=== PATIENT | male | born 1995 | race Caucasian/White ===

== ENCOUNTER 2021-09-11 00:19 | Inpatient (IN) | payer OTHER ==
--- NOTE | 2021-09-11 00:43 | ED ---
Psych HPI - General Chief Complaint: Psychiatric Symptoms Stated Complaint: Mental Health Time Seen by Provider: 09/11/21 00:22 Source: EMS, RN notes reviewed, old records reviewed Mode of arrival: EMS Limitations: no limitations - History of Present Illness Initial Comments: This is a 25-year-old male with known history of mental illness coming in for mental health evaluation. Patient states increased difficulty in life recent heroin overdose, very stressed and distress and a syncopal 20 suicide MD Complaint: suicidal ideation, feels depressed -: hour(s) Associated Psychiatric Symptoms: depression, suicidal ideation History of same: Yes Quality: constant Improves With: none Worsens With: none Context: significant life stressor Associated Symptoms: denies other symptoms Treatments Prior to Arrival: placed on mental health hold If Self Harm: admits thoughts of self harm - Related Data Allergies Allergy/AdvReac Type Severity Reaction Status Date / Time No Known Allergies Allergy Verified 09/11/21 00:37 Review of Systems ROS Statement: Those systems with pertinent positive or pertinent negative responses have been documented in the HPI. ROS Other: All systems not noted in ROS Statement are negative. Past Medical History Past Alcohol Use History: Abuse Past Drug Use History: Marijuana General Exam Limitations: no limitations General appearance: alert, in no apparent distress Head exam: Present: atraumatic, normocephalic, normal inspection Eye exam: Present: normal appearance, PERRL, EOMI. Absent: scleral icterus, conjunctival injection, periorbital swelling ENT exam: Present: normal exam, mucous membranes moist Neck exam: Present: normal inspection. Absent: tenderness, meningismus, lymphadenopathy Respiratory exam: Present: normal lung sounds bilaterally. Absent: respiratory distress, wheezes, rales, rhonchi, stridor Cardiovascular Exam: Present: regular rate, normal rhythm, normal heart sounds. Absent: systolic murmur, diastolic murmur, rubs, gallop, clicks GI/Abdominal exam: Present: soft, normal bowel sounds. Absent: distended, tenderness, guarding, rebound, rigid Extremities exam: Present: normal inspection, full ROM, normal capillary refill. Absent: tenderness, pedal edema, joint swelling, calf tenderness Back exam: Present: normal inspection Neurological exam: Present: alert, oriented X3, CN II-XII intact Psychiatric exam: Present: normal affect, normal mood Skin exam: Present: warm, dry, intact, normal color. Absent: rash Course - Reevaluation(s) Reevaluation #1: 09/11/21 00:43 Record is reviewed Reevaluation #2: 09/11/21 00:43 Medically clear for psychiatric evaluation Medical Decision Making - Medical Decision Making 25 male seen and evaluated psychiatry patient will be admitted for psychiatric evaluation and treatment Disposition Clinical Impression: Acute anxiety, Depression, Suicidal ideation Disposition: TRANSFER TO PSYCH HOSP/UNIT Condition: Fair Is patient prescribed a controlled substance at d/c from ED?: No Referrals: None,Stated [Primary Care Provider] - 1-2 days
[2021-09-11] MEDS ORDERED: HALOPERIDOL LACTATE 5 MG/ML 1 ML VIAL IM PRN (05:26)
[2021-09-11] MEDS ORDERED: ACETAMINOPHEN TAB 325 MG TAB PO PRN (05:26)
[2021-09-11] MEDS ORDERED: LORazepam 1 MG TAB PO PRN ×2 (05:26)
[2021-09-11] MEDS ORDERED: MAG HYDROX/AL HYDROX/SIMETH 30 ML CUP PO PRN (05:26)
[2021-09-11] MEDS ORDERED: haloperidoL 5 MG TAB PO PRN (05:30)
[2021-09-11] MEDS ORDERED: LORazepam 2 MG/ML INJ IM PRN (05:31)
[2021-09-11 06:05] LABS: Amphetamine Screen,Urine Not Detected (NotDetected); Barbiturate Screen,Urine Not Detected (NotDetected); Benzodiazepines Screen,Urine Not Detected (NotDetected); Cocaine Screen,Urine Not Detected (NotDetected); Methadone Screen, Urine Not Detected (NotDetected); Opiate Screen,Urine Not Detected (NotDetected); Oxycodone Screen, Urine Not Detected (NotDetected); Phencyclidine Screen,Urine Not Detected (NotDetected); Tricyclic Antidepressant,Urine Not Detected (NotDetected); Urn Cannabinoid Scrn Detected (NotDetected)
[2021-09-11 06:11] VITALS: RESP 18
[2021-09-11 06:36] LABS: Appearance,Urine Clear (Clear); Bilirubin,Urine Negative (Negative); Blood,Urine Negative (Negative); Color,Urine Light Yellow; Glucose,Urine (UA) Negative (Negative); Ketones,Urine 1+ (Negative); Leukocyte Esterase,Urine Negative (Negative); Nitrite,Urine Negative (Negative); Protein,Urine Negative (Negative); Specific Gravity,Urine 1.009 (1.001-1.035); Urobilinogen,Urine <2.0 mg/dL (<2.0)
[2021-09-11] MEDS: MULTIVITAMINS, THERA 1 EACH TAB PO SCH (08:52)
[2021-09-11] MEDS: THIAMINE 100 MG TAB PO SCH (08:52)
[2021-09-11] MEDS: NICOTINE 14MG/24HR PATCH TRANSDERM SCH (08:52)
[2021-09-11] MEDS: FOLIC ACID 1 MG TAB PO SCH (08:52)
[2021-09-11] MEDS: LORazepam 1 MG TAB PO PRN ×2 (08:54→22:11)
[2021-09-11] MEDS ORDERED: haloperidoL 1 MG TAB PO STA (11:38)
--- NOTE | 2021-09-11 13:00 | P.HP ---
Psychiatric H&P - . H&P Date: 09/11/21 History & Physical: Allergies Allergy/AdvReac Type Severity Reaction Status Date / Time No Known Allergies Allergy Verified 09/11/21 05:34 Vital Signs Temp 98.0 F 09/11/21 06:09 Pulse 78 09/11/21 06:09 Resp 18 09/11/21 06:09 BP 135/85 09/11/21 06:09 Pulse Ox 100 09/11/21 06:09 FiO2 Intake & Output 09/10/21 09/11/21 09/11/21 18:59 06:59 18:59 Weight 62.4 kg Laboratory Last Values Urine Color Light Yellow 09/11/21 04:21 Urine Appearance Clear (Clear) 09/11/21 04:21 Urine pH 6.0 (5.0-8.0) 09/11/21 04:21 Ur Specific [place] 1.009 (1.001-1.035) 09/11/21 04:21 Urine Protein Negative (Negative) 09/11/21 04:21 Urine Glucose (UA) Negative (Negative) 09/11/21 04:21 Urine Ketones 1+ (Negative) H 09/11/21 04:21 Urine Blood Negative (Negative) 09/11/21 04:21 Urine Nitrite Negative (Negative) 09/11/21 04:21 Urine Bilirubin Negative (Negative) 09/11/21 04:21 Urine Urobilinogen <2.0 mg/dL (<2.0) 09/11/21 04:21 Ur Leukocyte Esterase Negative (Negative) 09/11/21 04:21 Urine Opiates Screen Not Detected (NotDetected) 09/11/21 04:21 Ur Oxycodone Screen Not Detected (NotDetected) 09/11/21 04:21 Urine Methadone Screen Not Detected (NotDetected) 09/11/21 04:21 Ur Propoxyphene Screen Not Detected (NotDetected) 09/11/21 04:21 Ur Barbiturates Screen Not Detected (NotDetected) 09/11/21 04:21 U Tricyclic Antidepress Not Detected (NotDetected) 09/11/21 04:21 Ur Phencyclidine Scrn Not Detected (NotDetected) 09/11/21 04:21 Ur Amphetamines Screen Not Detected (NotDetected) 09/11/21 04:21 U Methamphetamines Scrn Not Detected (NotDetected) 09/11/21 04:21 U Benzodiazepines Scrn Not Detected (NotDetected) 09/11/21 04:21 Urine Cocaine Screen Not Detected (NotDetected) 09/11/21 04:21 U Marijuana (THC) Screen Detected (NotDetected) H 09/11/21 04:21 Coronavirus (PCR) Not Detected (Not Detectd) 09/11/21 04:16 09/11/21 12:59 IDENTIFYING DATA: Patient is a single, unemployed, 25-year-old male with significant history of ADHD, alcohol use disorder, and cannabis use disorder who presents to the hospital for suicidal ideation and acute psychosis. HPI: Patient presented to the hospital on 09/11/2021, brought into the hospital by police after the patient contacted the suicide hotline endorsing suicidal ideation the context of increased psychotic symptoms. The patient has been reportedly hearing and seeing things and also endorsing bizarre paranoid delusions. The patient was petitioned and certified however signed himself voluntarily on the psychiatric unit. Upon admission on psychiatric unit, the patient does report significant symptoms of bipolar disorder including periods of excessive energy (reports 2 days of sleep over the past month), grandiosity, racing thoughts, and impulsive spending. The patient does endorse suicidal ideation however is unable to clearly state if he had any particular plan although it is noted that he had a plan to jump off the bridge. He is not reporting any depressive symptoms aside from this suicidal ideation at this time. The patient does endorse significant psychotic symptoms. He reports that it began last month. He states that he was listening to an [facility] video in order to help his anxiety but that the person's voice began to be present even when he was not watching the video. He also states he was getting messages from this person. Furthermore he does report concerns that his phone is hacked and celebrities are stalking him. The patient endorses auditory but no visual hallucinations at this time. The patient does engage in significant substance use. He reports that he has been smoking about an ounce of marijuana daily. Furthermore, he has been increasing his alcohol use in order to "calm my nerves." He states that he has been drinking up to 2-3 bottles of cheap wine per night. If he can afford it, he substitutes the wine with a bottle of vodka. PAST PSYCHIATRIC HISTORY: Patient states that he has improved since diagnosed with ADHD. He reports being previously prescribed Adderall. Patient denies any previous psychiatric hospitalizations. Patient denies any psychiatric outpatient follow-up. Patient denies any history of suicide attempts in the past. PMH: No reported medical history; Past Alcohol Use History: Abuse Past Drug Use History: Marijuana ALLERGIES: NO KNOWN DRUG ALLERGIES CHEMICAL DEPENDENCY HISTORY: The patient reports daily alcohol use over the past month, up to 2-3 bottles of wine per night. He reports daily marijuana use. He reports a history of heavy tobacco use however states that he decreased this. He denies any other drug use but does admit to experimenting with drugs in the past. FAMILY PSYCHIATRIC/SUBSTANCE USE HISTORY: No reported family history SOCIAL HISTORY: Patient is single, has no children, and is currently unemployed. He reports an 11th grade education. He currently lives with his grandparents, father, and dog. MENTAL STATUS EXAM: General Appearance: Patient appears to be stated age is alert, directable, and attempts to cooperate. Patient appears to have slightly disheveled hygiene and grooming. Behavior: Patient displayed psychomotor agitation. Eye contact is fair. Speech: Patient's speech is fluent and nonpressured. Mood/Affect: Patient reports their mood is "very stressed," affect is congruent and dysphoric. Suicidality/Homicidality: Patient endorses suicidal ideation however denies any homicidal ideation. Perceptions: Patient denies any visual hallucinations however endorses auditory hallucinations. Though content/process: The patient endorses significant paranoid delusions, ideas of reference, and some grandiose delusions Memory and concentration: AOX3, grossly intact for the purposes of this session. Can spell "WORLD" backwards Judgment and insight: Fair STRENGTHS/WEAKNESSES: Strength is that the patient seems to have fair enough insight to realize that he is experiencing a psychotic episode. Weakness is that the patient engages in heavy substance abuse. INTELLECT: average IMPRESSIONS: Acute psychosis; rule out bipolar 1 disorder, manic episode, with psychotic features versus schizoaffective disorder, bipolar type Cannabis use disorder Alcohol use disorder Tobacco use disorder PLAN: -Patient is admitted under involuntary however converted to voluntary status to MHU for stabilization of psychiatric symptoms and safety. Patient signed adult voluntary form and medication consent and is placed in patient's chart. -Medications : Will start patient on Haldol 3 mg by mouth twice a day for acute psychosis Depakote ER 750 mg by mouth at bedtime for mood stabilization -Ativan and Haldol PRN for agitation/aggression -CIWA protocol with Ativan PRN for ETOH withdrawal -Patient was counselled on substance abuse and desired to cut back on use -Patient was informed of the risks, benefits and side effects of the medication and patient verbally consented to taking the medications. Patient signed med consent form and was placed in chart. -Internal Medicine consult to perform medical evaluation and physical. -NRT - nicotine patch -SW on board for discharge planning. Encourage patient to participate in groups to work on coping skills. 09/11/21 13:00
[2021-09-11] MEDS: haloperidoL 1 MG TAB PO SCH (20:40)
[2021-09-11] MEDS ORDERED: DIVALPROEX ER 250 MG TAB.ER.24H PO SCH (21:00)
--- NOTE | 2021-09-12 00:05 | P.CONS ---
History of Present Illness - Reason for Consult Consult date: 09/11/21 - History of Present Illness The patient is a 25-year-old male with a PMH of polysubstance abuse is under the emergency room for hallucinations. The patient was admitted to the mental health unit where he was seen and evaluated. The patient reports that he has been smoking marijuana excessively, and believes that he is hearing things. He reports chronic lower back pain which is unchanged. Denies any additional physi abdias complaints. Reports smoking half a pack of cigarettes daily and using marijuana daily. Does endorse using varying amounts of liquor daily, but denied history of alcohol withdrawal or DTs. Denied experiencing chest discomfort, shortness of breath, fever, chills, cough, nausea, vomiting, abdominal pain, diarrhea. Review of systems: Pertinent positives and negatives as discussed in HPI, a complete review of systems was performed and all other systems are negative. Physical examination: General: non toxic, no distress, appears at stated age, normal weight Derm: no unusual rashes/lesions no unusual ecchymoses, warm, dry Head: atraumatic, normocephalic, symmetric Eyes: EOMI, no lid lag, anicteric sclera, pupils equal round reactive to light ENT: Nose and ears atraumatic, no thrush, no pharyngeal erythema Neck: No thyromegaly, no cervical lymphadenopathy, trachea midline, supple Mouth: no lip lesion, mucus membranes moist Cardiovascular: S1S2 reg, no murmur, positive posterior tibial pulse bilateral, no edema, capillary refill less than 2 seconds Lungs: CTA bilateral, no rhonchi, no rales , no accessory muscle use Abdominal: soft, nontender to palpation, no guarding, no appreciable organomegaly, normal bowel sounds Ext: no gross muscle atrophy, muscle strength 5 out of 5 in all 4 extremities grossly, no contractures, Neuro: CN II-XI grossly intact, light touch intact all 4 extremities, finger to nose within normal limits, Psych: Alert, oriented, appropriate affect Assessment/plan EtOH abuse -Continue with thiamine, multivitamin Marijuana and tobacco abuse -Advised on the importance of cessation Psychosis -As per psychiatry Thank you for allowing us to participate in the care of this patient. We will follow peripherally. Do not hesitate to contact us with questions. Someone can be reached from the [facility] hospitalist group at all hours of the day at [phone]. Past Medical History History of Any Multi-Drug Resistant Organisms: None Reported Smoking Status: Current every day smoker Past Alcohol Use History: Abuse Past Drug Use History: Marijuana - Past Family History Mother Family Medical History: COPD Medications and Allergies Home Medications Medication Instructions Recorded Confirmed Type No Known Home Medications 09/11/21 09/11/21 History Allergies Allergy/AdvReac Type Severity Reaction Status Date / Time No Known Allergies Allergy Verified 09/11/21 05:34 Physical Exam Vitals: Vital Signs Temp Pulse Resp BP Pulse Ox 09/11/21 06:09 98.0 F 78 18 135/85 100 Intake and Output 09/11/21 09/11/21 09/11/21 06:59 14:59 22:59 Other: Weight 62.4 kg Results Labs: Abnormal Lab Results - Last 24 Hours (Table) 09/11/21 09/11/21 Range/Units 04:21 04:21 Urine Ketones 1+ H (Negative) U Marijuana (THC) Screen Detected H (NotDetected)
[2021-09-12] MEDS: LORazepam 1 MG TAB PO PRN (04:59)
[2021-09-12] MEDS: THIAMINE 100 MG TAB PO SCH (08:24)
[2021-09-12] MEDS: NICOTINE 14MG/24HR PATCH TRANSDERM SCH (08:24)
[2021-09-12] MEDS: FOLIC ACID 1 MG TAB PO SCH (08:24)
[2021-09-12] MEDS: haloperidoL 1 MG TAB PO SCH (08:24)
[2021-09-12] MEDS: MULTIVITAMINS, THERA 1 EACH TAB PO SCH (08:24)
[2021-09-12 11:21] LABS: Basophils # (A) 0.1 k/uL (0-0.2); Basophils % (A) 1 %; Eosinophils # (A) 0.1 k/uL (0-0.7); Eosinophils % (A) 1 %; HCT 45.6 % (39.0-53.0); HGB 15.5 gm/dL (13.0-17.5); Lymphocytes # (A) 2.5 k/uL (1.0-4.8); Lymphocytes % (A) 27 %; MCH 30.7 pg (25.0-35.0); MCHC 34.1 g/dL (31.0-37.0); MCV 90.2 fL (80.0-100.0); Mean Platelet Volume 6.8; Monocytes # (A) 0.6 k/uL (0-1.0); Monocytes % (A) 6 %; Neutrophils # (A) 6.1 k/uL (1.3-7.7); Neutrophils % (A) 64 %; Platelet Count 294 k/uL (150-450); RBC 5.06 m/uL (4.30-5.90); RDW 11.8 % (11.5-15.5); WBC 9.5 k/uL (3.8-10.6)
[2021-09-12 11:55] LABS: ALT 37 U/L (4-49); AST 48 U/L (17-59); African American GFR (CKD) >90 (>60 ml/min/1.73 sqM); Albumin 5.1 g/dL (3.5-5.0); Alkaline Phosphatase 80 U/L (38-126); Anion Gap 12 mmol/L; Blood Urea Nitrogen 12 mg/dL (9-20); Calcium 9.7 mg/dL (8.4-10.2); Carbon Dioxide 27 mmol/L (22-30); Chloride 100 mmol/L (98-107); Glucose 99 mg/dL (74-99); Non-African American GFR(CKD) >90 (>60 ml/min/1.73 sqM); Potassium 3.9 mmol/L (3.5-5.1); Sodium 139 mmol/L (137-145); Total Protein 8.1 g/dL (6.3-8.2)
--- NOTE | 2021-09-12 17:58 | P.PN ---
Progress Note - Text Progress Note Date: 09/12/21 Interval History: Patient was in his room sleeping and was directable and agreeable to speak with technical document writer in the office. He reports he had not slept in a long time and is finally get some sleep here. He reports he was admitted because he was seeing things and hearing things, and also a danger to himself and others. He denies auditory hallucinations, but reports his "imagination is more active than it ever has been". He denies visual hallucinations currently. Patient has been compliant with meds, reports he feels his "legs are wobbly and having a hard time holding my weight". He reports he felt when he was looking at his phone before admission, he thought someone was sending subliminal messages to him through the phone and trying to get him to kill people. He was listening to music and started seeing violent animations, and felt someone was targeting to him, listening to him. He reports he was really scared by this and is crying. He reports he started to hear and see these things about 3 weeks ago. He reports he was smoking about 2 grams a day of marijuana. Mental Status Exam: General Appearance: Patient appears to be stated age, is disheveled, unshaven, dressed in hospital gown. Orientation: he is alert, oriented to person, place, time. Behavior: Patient is calmly seated without any agitated behavior. He is emotional, begins to cry. Speech: Patient's speech is fluent and nonpressured. Mood/Affect: Mood is "very calm, excited about future, nervous and afraid, sad about all the time I've wasted", affect is labile, tearful. Suicidality/Homicidality: Patient denies having any suicidal or homicidal ideation intent or plan. Perceptions: Patient denies any visual hallucinations and denies any auditory hallucinations. Though content: There is evidence of paranoid delusional thought content, thinks people might hurt him, kill him, or who will care about him. Thought process: Ideas of reference Memory and concentration: Grossly intact for the purposes of this session. Judgment and insight: Improving mildly Assessment: Brief psychotic disorder, r/o schizophreniform disorder vs schizoaffective disorder, bipolar type Unspecified mood disorder, r/o Bipolar 1 disorder, current episode mixed with psychotic features vs Schizoaffective disorder, bipolar type Cannabis use disorder Alcohol use disorder Tobacco use disorder Plan: -Patient continues to meet criteria for inpatient psychiatric admission for symptom stabilization and safety. Patient has signed adult voluntary form and medication consent and was placed in patient's chart. -Medications: Increase Haldol to 5 mg BID for psychosis. Start Cogentin 0.5 mg BID for EPS prophylaxis. Increase Depakote to 1000 mg QHS for mood stabilization. -When necessary Ativan and Haldol for agitation/aggression. -NRT - nicotine patch -SW on board for discharge planning. Encouraged the patient to participate in milieu. []
[2021-09-12] MEDS: BENZTROPINE MESYLATE 0.5 MG TAB PO SCH (21:42)
[2021-09-12] MEDS: haloperidoL 5 MG TAB PO SCH (21:42)
[2021-09-12] MEDS: DIVALPROEX ER 500 MG TAB.ER.24H PO SCH (21:42)
[2021-09-13] MEDS: THIAMINE 100 MG TAB PO SCH (08:53)
[2021-09-13] MEDS: haloperidoL 5 MG TAB PO SCH ×2 (08:53→21:06)
[2021-09-13] MEDS: FOLIC ACID 1 MG TAB PO SCH (08:53)
[2021-09-13] MEDS: NICOTINE 14MG/24HR PATCH TRANSDERM SCH (08:53)
[2021-09-13] MEDS: BENZTROPINE MESYLATE 0.5 MG TAB PO SCH ×2 (08:53→21:06)
[2021-09-13] MEDS: MULTIVITAMINS, THERA 1 EACH TAB PO SCH (08:53)
--- NOTE | 2021-09-13 11:24 | P.PN ---
Subjective Progress Note Date: 09/13/21 Principal diagnosis: Assessment: Brief psychotic disorder, r/o schizophreniform disorder vs schizoaffective disorder, bipolar type Unspecified mood disorder, r/o Bipolar 1 disorder, current episode mixed with psychotic features vs Schizoaffective disorder, bipolar type Cannabis use disorder Alcohol use disorder Tobacco use disorder Patient was in his room sleeping and was directable and agreeable to speak with typewriter assembler in the office. He reports he felt when he was looking at his phone before admission, he thought someone was sending subliminal messages to him through the phone and trying to get him to kill people. He was listening to music and started seeing violent animations, and felt someone was targeting to him, listening to him. He reports he was really scared by this and is crying. He reports he started to hear and see these things about 3 weeks ago. He reports he was smoking about 2 grams a day of marijuana. And drinking heavily at that time Mental Status Exam: General Appearance: Patient appears to be stated age, is disheveled, unshaven, dressed in hospital gown. Orientation: he is alert, oriented to person, place, time. Behavior: Patient is calmly seated without any agitated behavior. He is emotional, begins to cry. Speech: Patient's speech is fluent and nonpressured. Mood/Affect: Mood is calm, Suicidality/Homicidality: Patient denies having any suicidal or homicidal ideation intent or plan. Perceptions: Patient denies any visual hallucinations and denies any auditory hallucinations. Though content: There is evidence of paranoid delusional thought content, thinks people might hurt him, kill him, or who will care about him. Thought process: Ideas of reference Memory and concentration: Grossly intact for the purposes of this session. Judgment and insight: Improving mildly Assessment: Brief psychotic disorder, r/o schizophreniform disorder vs schizoaffective disorder, bipolar type Unspecified mood disorder, r/o Bipolar 1 disorder, current episode mixed with psychotic features vs Schizoaffective disorder, bipolar type Cannabis use disorder Alcohol use disorder Tobacco use disorder Plan: -Patient continues to meet criteria for inpatient psychiatric admission for symptom stabilization and safety. Patient has signed adult voluntary form and medication consent and was placed in patient's chart. -Medications: Continue Haldol to 5 mg BID for psychosis. Continue Cogentin 0.5 mg BID for EPS prophylaxis. Continue Depakote to 1000 mg QHS for mood stabilization. -When necessary Ativan and Haldol for agitation/aggression. -NRT - nicotine patch -SW on board for discharge planning. Encouraged the patient to participate in milieu. [ Maykel Michelle M.D. 09/13/2021] Objective - Vital Signs Vital signs: Vital Signs Temp 97.7 F 09/13/21 06:52 Pulse 107 H 09/13/21 06:52 Resp 18 09/11/21 06:09 BP 119/88 09/13/21 06:52 Pulse Ox 97 09/13/21 06:52 FiO2 - Labs CBC & Chem 7: 09/12/21 10:28 09/12/21 10:28 Labs: Abnormal Lab Results - Last 24 Hours (Table) 09/12/21 Range/Units 10:28 Albumin 5.1 H (3.5-5.0) g/dL
[2021-09-13] MEDS: DIVALPROEX ER 500 MG TAB.ER.24H PO SCH (21:06)
[2021-09-14 02:15] VITALS: TEMP 97.8
[2021-09-14] MEDS: LORazepam 1 MG TAB PO PRN ×2 (02:15→09:27)
[2021-09-14] MEDS: FOLIC ACID 1 MG TAB PO SCH (08:50)
[2021-09-14] MEDS: MULTIVITAMINS, THERA 1 EACH TAB PO SCH (08:50)
[2021-09-14] MEDS: haloperidoL 5 MG TAB PO SCH ×2 (08:50→21:16)
[2021-09-14] MEDS: BENZTROPINE MESYLATE 0.5 MG TAB PO SCH ×2 (08:50→21:16)
[2021-09-14] MEDS: NICOTINE 14MG/24HR PATCH TRANSDERM SCH (08:50)
[2021-09-14] MEDS: THIAMINE 100 MG TAB PO SCH (08:50)
--- NOTE | 2021-09-14 11:09 | P.PN ---
Subjective Progress Note Date: 09/14/21 Principal diagnosis: Assessment: Brief psychotic disorder, r/o schizophreniform disorder vs schizoaffective disorder, bipolar type Unspecified mood disorder, r/o Bipolar 1 disorder, current episode mixed with psychotic features vs Schizoaffective disorder, bipolar type Cannabis use disorder Alcohol use disorder Tobacco use disorder Patient was seen in the hallway and agreeable to speak with marketing writer in the office. He states that there for the most part he has been feeling a lot better He states that his thoughts are clear and is not having any hallucinations He denies any suicidal or homicidal ideations He denies any auditory or visual hallucinations Mental Status Exam: General Appearance: Patient appears to be stated age, is casually groomed and is using some board close from the hospital Orientation: he is alert, oriented to person, place, time. Behavior: Patient is calmly seated without any agitated behavior. Speech: Patient's speech is fluent and nonpressured. Mood/Affect: Mood is calm, Suicidality/Homicidality: Patient denies having any suicidal or homicidal ideation intent or plan. Perceptions: Patient denies any visual hallucinations and denies any auditory hallucinations. Though content: There is no evidence of paranoid delusional thought content, Thought process: Ideas of reference Memory and concentration: Grossly intact for the purposes of this session. Judgment and insight: Improving mildly Assessment: Brief psychotic disorder, r/o schizophreniform disorder vs schizoaffective disorder, bipolar type Unspecified mood disorder, r/o Bipolar 1 disorder, current episode mixed with psychotic features vs Schizoaffective disorder, bipolar type Cannabis use disorder Alcohol use disorder Tobacco use disorder Plan: -Patient continues to meet criteria for inpatient psychiatric admission for symptom stabilization and safety. Although he started to show some improvement and increase in insight Patient has signed adult voluntary form and medication consent and was placed in patient's chart. -Medications: Continue Haldol to 5 mg BID for psychosis. Continue Cogentin 0.5 mg BID for EPS prophylaxis. Continue Depakote to 1000 mg QHS for mood stabilization. -When necessary Ativan and Haldol for agitation/aggression. -NRT - nicotine patch -SW on board for discharge planning. Encouraged the patient to participate in milieu. [ Maykel Michelle M.D. 09/14/2021] Objective - Vital Signs Vital signs: Vital Signs Temp 97.8 F 09/14/21 02:15 Pulse 124 H 09/14/21 02:15 Resp 18 09/14/21 02:15 BP 110/79 09/14/21 02:15 Pulse Ox 99 09/14/21 02:15 FiO2 Intake & Output 09/13/21 09/14/21 09/14/21 18:59 06:59 18:59 Weight 62.2 kg - Labs CBC & Chem 7: 09/12/21 10:28 09/12/21 10:28
[2021-09-14] MEDS: MAGNESIUM HYDROXIDE 2,400 MG/10 ML CUP PO PRN ×2 (11:35→21:17)
[2021-09-14] MEDS: DIVALPROEX ER 500 MG TAB.ER.24H PO SCH (21:16)
[2021-09-15 06:44] VITALS: BP 113/70; PULSE 100
[2021-09-15] MEDS: MULTIVITAMINS, THERA 1 EACH TAB PO SCH (08:55)
[2021-09-15] MEDS: THIAMINE 100 MG TAB PO SCH (08:55)
[2021-09-15] MEDS: NICOTINE 14MG/24HR PATCH TRANSDERM SCH (08:56)
[2021-09-15] MEDS: FOLIC ACID 1 MG TAB PO SCH (08:56)
[2021-09-15] MEDS: haloperidoL 5 MG TAB PO SCH (08:56)
[2021-09-15] MEDS: BENZTROPINE MESYLATE 0.5 MG TAB PO SCH (08:56)
--- NOTE | 2021-09-15 14:10 | P.DS ---
Providers Date of admission: 09/11/21 05:16 Expected date of discharge: 09/15/21 Attending physician: Jarrett Parson MD Consults: 09/11/21 05:26 Consult Physician Routine Consulting Provider: Meme Bean Consult Reason/Comments: For H & P for Medical Follow Up Do you want consulting provider notified?: Yes Primary care physician: Stated None - Discharge Diagnosis(es) (1) Brief psychotic disorder Status: Acute Priority: High (2) Cannabis use disorder Status: Chronic Priority: Medium (3) Alcohol use disorder Status: Chronic Priority: Medium (4) Tobacco use disorder Status: Chronic Priority: Medium Hospital Course: Admission HPI: Patient is a single, unemployed, 25-year-old male with significant history of ADHD, alcohol use disorder, and cannabis use disorder who presents to the hospital for suicidal ideation and acute psychosis. Patient presented to the hospital on 09/11/2021, brought into the hospital by police after the patient contacted the suicide hotline endorsing suicidal ideation the context of increased psychotic symptoms. The patient has been reportedly hearing and seeing things and also endorsing bizarre paranoid delusions. The patient was petitioned and certified however signed himself voluntarily on the psychiatric unit. Upon admission on psychiatric unit, the patient does report significant symptoms of bipolar disorder including periods of excessive energy (reports 2 days of sleep over the past month), grandiosity, racing thoughts, and impulsive spending. The patient does endorse suicidal ideation however is unable to clearly state if he had any particular plan although it is noted that he had a plan to jump off the bridge. He is not reporting any depressive symptoms aside from this suicidal ideation at this time. The patient does endorse significant psychotic symptoms. He reports that it began last month. He states that he was listening to an [facility] video in order to help his anxiety but that the person's voice began to be present even when he was not watching the video. He also states he was getting messages from this person. Furthermore he does report concerns that his phone is hacked and celebrities are stalking him. The patient endorses auditory but no visual hallucinations at this time. The patient does engage in significant substance use. He reports that he has been smoking about an ounce of marijuana daily. Furthermore, he has been increasing his alcohol use in order to "calm my nerves." He states that he has been drinking up to 2-3 bottles of cheap wine per night. If he can afford it, he substitutes the wine with a bottle of vodka. PAST PSYCHIATRIC HISTORY: Patient states that he has improved since diagnosed with ADHD. He reports being previously prescribed Adderall. Patient denies any previous psychiatric hospitalizations. Patient denies any psychiatric outpatient follow-up. Patient denies any history of suicide attempts in the past. Hospital course: Upon admission to the unit patient was initially to significant symptoms of psychosis and billy including excessive energy, impulsivity, gross disorganization, flight of ideas, paranoid delusions, and auditory hallucinations. Patient was however directable and agreeable to commence treatment. Patient got along well with other patients on the unit and followed unit protocol. Patient was compliant with the medications and denied any side effects throughout hospital course. Patient was started on a regimen of Haldol and Depakote as the patient lacked insurance and Haldol is a more affordable antipsychotic that would address his acute symptoms. Patient spoke of his stressors and engaged in therapy both group and individual. Patient was also seen by medical team for history and physical exam. The patient's medications were gradually titrated and Cogentin was added to his regimen to address any EPS side effects. Over the course the hospitalization, the patient displayed significant improvement in regards to his target symptoms of billy and acute psychosis. He developed better insight and judgment and became more in line with reality. He reported a decrease in his suicidal thoughts anymore and strong desire to live. On the day of discharge, the patient is not reporting any suicidal or homicidal ideation, intention, and/or plan. He denies any access to firearms or other weapons. He reports no auditory or visual hallucinations. He denies any paranoia or other delusions. The patient has been adherent with his medications and is not endorsing any significant side effects at this time. His counseling on the o importance of medication adherence and outpatient follow-up. The patient does have a significant history of substance use and was counseled at great length on abstaining from all substances, especially marijuana. Prior to discharge, a family meeting will be arranged by social sciences lecturer tends any questions and ensure safety. Mental status exam: General Appearance: Patient appears to be stated age is alert, pleasant, and cooperative. Patient is in no acute distress and has fair hygiene and grooming Behavior: Patient is calmly seated without any agitated behavior. Good eye contact. Normal psychomotor activity. Speech: Patient's speech is fluent and nonpressured. Mood/Affect: Patient reports their mood is "feeling much much better.", affect is congruent and euthymic to bright. Suicidality/Homicidality: Patient denies having any suicidal or homicidal id eation intent or plan. Perceptions: Patient denies any auditory or visual hallucinations. Though content/process: There is no evidence of any delusional thought content and thought process is linear and goal-directed. Patient is future oriented. Memory and concentration: AOX3, grossly intact for the purposes of this session. Can spell "WORLD" backwards correctly. Judgment and insight: Improved with guarded prognosis Impression: Brief psychotic disorder Cannabis use disorder Alcohol use disorder Tobacco use disorder Plan: -Continue with discharge today as patient has improved and stabilized psychiatrically and is not currently an imminent threat to himself and/or others. Patient will remain at chronically elevated risk for harm to self and/or others due to his polysubstance abuse. -Continue medications: Depakote ER 1000 mg daily at bedtime for mood stabilization Cogentin 0.5 mg by mouth twice a day for EPS Haldol 5 mg by mouth twice a day for psychosis. -Patient was counseled on the need for medication compliance and appropriate follow-up at mental health and also primary care for medical issues. Patient verbalized understanding and agreed. -Social work to arrange for and conduct family meeting to ensure safety upon discharge and answer any questions/concerns. Social work also to arrange for patients follow up appointments with [facility] for psychiatric care along with follow up with primary care provider. -Patient counseled on abstaining from recreational drugs and marijuana and alcohol. Was informed/educated on the adverse effects on their physical and mental health. Patient verbally agreed and understoo. Patient was offered substance abuse treatment however declined at this time. -Patient was instructed to return to the hospital or seek immediate medical care if their psychiatric or medical symptoms do worsen or reoccur. -Psychoeducation and supportive therapy provided to patient. Risks and benefits of pharmacological treatment versus the risks and benefits of nontreatment weight and discussed. Informed consent discussion held. Common side effects of psychotropics discussed such as, but not limited to headache, GI disturbance, sexual dysfunction, movement disorders, sedation, and orthostatic hypotension. Life threatening and blackbox warnings of prescribed medications also discussed. Potential risks of operating a vehicle or heavy machinery discussed with patient at length. Advised on importance of compliance and a reliable and responsible manner. Patient advised to review FDA consumer labeling of all medications prior to taking. Patient verbalized understanding of potential risks, and agrees with current treatment plan. Patient advised to medically contact physician/emergency personnel if any acute changes in condition occur. Vital Signs Temp 97.8 F 09/15/21 06:44 Pulse 100 09/15/21 06:44 Resp 18 09/15/21 06:44 BP 113/70 09/15/21 06:44 Pulse Ox 98 09/15/21 06:44 FiO2 Intake & Output 09/14/21 09/15/21 09/15/21 18:59 06:59 18:59 Weight 62.2 kg Laboratory Results WBC 9.5 k/uL (3.8-10.6) 09/12/21 10:28 RBC 5.06 m/uL (4.30-5.90) 09/12/21 10:28 Hgb 15.5 gm/dL (13.0-17.5) 09/12/21 10:28 Hct 45.6 % (39.0-53.0) 09/12/21 10:28 MCV 90.2 fL (80.0-100.0) 09/12/21 10:28 MCH 30.7 pg (25.0-35.0) 09/12/21 10:28 MCHC 34.1 g/dL (31.0-37.0) 09/12/21 10:28 RDW 11.8 % (11.5-15.5) 09/12/21 10:28 Plt Count 294 k/uL (150-450) 09/12/21 10:28 MPV 6.8 09/12/21 10:28 Neutrophils % 64 % 09/12/21 10:28 Lymphocytes % 27 % 09/12/21 10:28 Monocytes % 6 % 09/12/21 10:28 Eosinophils % 1 % 09/12/21 10:28 Basophils % 1 % 09/12/21 10:28 Neutrophils # 6.1 k/uL (1.3-7.7) 09/12/21 10:28 Lymphocytes # 2.5 k/uL (1.0-4.8) 09/12/21 10:28 Monocytes # 0.6 k/uL (0-1.0) 09/12/21 10:28 Eosinophils # 0.1 k/uL (0-0.7) 09/12/21 10:28 Basophils # 0.1 k/uL (0-0.2) 09/12/21 10:28 Sodium 139 mmol/L (137-145) 09/12/21 10:28 Potassium 3.9 mmol/L (3.5-5.1) 09/12/21 10:28 Chloride 100 mmol/L (98-107) 09/12/21 10:28 Carbon Dioxide 27 mmol/L (22-30) 09/12/21 10:28 Anion Gap 12 mmol/L 09/12/21 10:28 BUN 12 mg/dL (9-20) 09/12/21 10:28 Creatinine 0.98 mg/dL (0.66-1.25) 09/12/21 10:28 Est GFR (CKD-EPI)AfAm >90 (>60 ml/min/1.73 sqM) 09/12/21 10:28 Est GFR (CKD-EPI)NonAf >90 (>60 ml/min/1.73 sqM) 09/12/21 10:28 Glucose 99 mg/dL (74-99) 09/12/21 10:[address] Glu mg/dL 102 09/12/21 10:28 Hemoglobin A1c 5.2 % (0.0-6.0) 09/12/21 10:28 Calcium 9.7 mg/dL (8.4-10.2) 09/12/21 10:28 Total Bilirubin 1.0 mg/dL (0.2-1.3) 09/12/21 10:28 AST 48 U/L (17-59) 09/12/21 10:28 ALT 37 U/L (4-49) 09/12/21 10:28 Alkaline Phosphatase 80 U/L (38-126) 09/12/21 10:28 Total Protein 8.1 g/dL (6.3-8.2) 09/12/21 10:28 Albumin 5.1 g/dL (3.5-5.0) H 09/12/21 10:28 TSH 1.520 mIU/L (0.465-4.680) 09/12/21 10:28 Urine Color Light Yellow 09/11/21 04:21 Urine Appearance Clear (Clear) 09/11/21 04:21 Urine pH 6.0 (5.0-8.0) 09/11/21 04:21 Ur Specific [place] 1.009 (1.001-1.035) 09/11/21 04:21 Urine Protein Negative (Negative) 09/11/21 04:21 Urine Glucose (UA) Negative (Negative) 09/11/21 04:21 Urine Ketones 1+ (Negative) H 09/11/21 04:21 Urine Blood Negative (Negative) 09/11/21 04:21 Urine Nitrite Negative (Negative) 09/11/21 04:21 Urine Bilirubin Negative (Negative) 09/11/21 04:21 Urine Urobilinogen <2.0 mg/dL (<2.0) 09/11/21 04:21 Ur Leukocyte Esterase Negative (Negative) 09/11/21 04:21 Urine Opiates Screen Not Detected (NotDetected) 09/11/21 04:21 Ur Oxycodone Screen Not Detected (NotDetected) 09/11/21 04:21 Urine Methadone Screen Not Detected (NotDetected) 09/11/21 04:21 Ur Propoxyphene Screen Not Detected (NotDetected) 09/11/21 04:21 Ur Barbiturates Screen Not Detected (NotDetected) 09/11/21 04:21 U Tricyclic Antidepress Not Detected (NotDetected) 09/11/21 04:21 Ur Phencyclidine Scrn Not Detected (NotDetected) 09/11/21 04:21 Ur Amphetamines Screen Not Detected (NotDetected) 09/11/21 04:21 U Methamphetamines Scrn Not Detected (NotDetected) 09/11/21 04:21 U Benzodiazepines Scrn Not Detected (NotDetected) 09/11/21 04:21 Urine Cocaine Screen Not Detected (NotDetected) 09/11/21 04:21 U Marijuana (THC) Screen Detected (NotDetected) H 09/11/21 04:21 Coronavirus (PCR) Not Detected (Not Detectd) 09/11/21 04:16 Allergies Allergy/AdvReac Type Severity Reaction Status Date / Time No Known Allergies Allergy Verified 09/11/21 05:34 Patient Condition at Discharge: Stable Plan - Discharge Summary New Discharge Prescriptions: New Divalproex ER [Depakote ER] 1,000 mg PO HS 30 Days tab Benztropine Mesylate [Cogentin] 0.5 mg PO BID 30 Days tab haloperidoL [Haldol] 5 mg PO BID 30 Days tab Discharge Medication List Benztropine Mesylate [Cogentin] 0.5 mg PO BID 30 Days tab 09/15/21 [Rx] Divalproex ER [Depakote ER] 1,000 mg PO HS 30 Days tab 09/15/21 [Rx] haloperidoL [Haldol] 5 mg PO BID 30 Days tab 09/15/21 [Rx] Follow up Appointment(s)/Referral(s): [facility] [Outside] - 09/17/21 9:00 am (with intake department) [facility] [NON[facility]STAFF] - 1 Week Patient Instructions/Handouts: Schizoaffective Disorder (DC) Activity/Diet/Wound Care/Special Instructions: Avoid the use of street drugs and alcohol. Take all prescriptions as prescribed. When you are in need of refills on your medications, please contact your medical provider and/or outpatient psychiatrist to have this done. Please go to scheduled outpatient appointment for aftercare treatment. If symptoms return or become worse, call the crisis line at and/or go to the nearest emergency room for evaluation. Discharge Disposition: HOME SELF-CARE
== END 2021-09-15 12:45 | disposition home or self-care (01) | DRG 885 ==
LOC: EC 00:19 → 3MHU 05:16
PROVIDERS: ADMIT Psychiatry & Neurology Psychiatry; ATTEND Psychiatry & Neurology Psychiatry
DX: F23 Brief psychotic disorder (principal); R45.851 Suicidal ideations; F10.10 Alcohol abuse, uncomplicated; F12.10 Cannabis abuse, uncomplicated; F17.210 Nicotine dependence, cigarettes, uncomplicated; F32.A Depression, unspecified; F41.9 Anxiety disorder, unspecified; F90.9 Attention-deficit hyperactivity disorder, unspecified type; G89.29 Other chronic pain; Z79.899 Other long term (current) drug therapy; Z82.5 Family history of asthma and other chronic lower respiratory diseases; Z28.21 Immunization not carried out because of patient refusal; Z71.41 Alcohol abuse counseling and surveillance of alcoholic; Z71.51 Drug abuse counseling and surveillance of drug abuser; Z20.822 Contact with and (suspected) exposure to COVID-19
CPT/HCPCS: 80053; 80306; 81003; 82075; 83036; 84443; 85025; 87635; 99285

== ENCOUNTER 2021-09-27 12:08 | Emergency (ER) | payer OTHER ==
[2021-09-27] MEDS ORDERED: SODIUM CHLORIDE 0.9% 1,000 ML IV ONE (12:27)
[2021-09-27 12:55] LABS: Basophils # (A) 0.1 k/uL (0-0.2); Basophils % (A) 1 %; Eosinophils # (A) 0.3 k/uL (0-0.7); Eosinophils % (A) 4 %; HCT 43.9 % (39.0-53.0); HGB 14.5 gm/dL (13.0-17.5); Lymphocytes # (A) 1.7 k/uL (1.0-4.8); Lymphocytes % (A) 24 %; MCH 30.1 pg (25.0-35.0); MCHC 33.1 g/dL (31.0-37.0); MCV 91.2 fL (80.0-100.0); Mean Platelet Volume 7.5; Monocytes # (A) 0.5 k/uL (0-1.0); Monocytes % (A) 7 %; Neutrophils # (A) 4.6 k/uL (1.3-7.7); Neutrophils % (A) 63 %; Platelet Count 212 k/uL (150-450); RBC 4.82 m/uL (4.30-5.90); RDW 11.9 % (11.5-15.5); WBC 7.2 k/uL (3.8-10.6)
[2021-09-27 13:09] LABS: Amorphous Sediment,Urine Rare /hpf; Appearance,Urine Cloudy (Clear); Bilirubin,Urine Negative (Negative); Blood,Urine Negative (Negative); Color,Urine Light Yellow; Glucose,Urine (UA) Negative (Negative); Ketones,Urine Negative (Negative); Leukocyte Esterase,Urine Negative (Negative); Nitrite,Urine Negative (Negative); Protein,Urine Negative (Negative); RBC,Urine 1 /hpf (0-5); Urobilinogen,Urine <2.0 mg/dL (<2.0); WBC,Urine 1 /hpf (0-5)
[2021-09-27 13:13] LABS: ALT 35 U/L (4-49); AST 40 U/L (17-59); African American GFR (CKD) >90 (>60 ml/min/1.73 sqM); Albumin 4.5 g/dL (3.5-5.0); Alcohol <10 mg/dL; Alkaline Phosphatase 63 U/L (38-126); Anion Gap 8 mmol/L; Blood Urea Nitrogen 18 mg/dL (9-20); Calcium 9.6 mg/dL (8.4-10.2); Carbon Dioxide 25 mmol/L (22-30); Chloride 107 mmol/L (98-107); Glucose 94 mg/dL (74-99); Magnesium 1.9 mg/dL (1.6-2.3); Non-African American GFR(CKD) >90 (>60 ml/min/1.73 sqM); Potassium 4.2 mmol/L (3.5-5.1); Sodium 140 mmol/L (137-145); Total Bilirubin 0.5 mg/dL (0.2-1.3); Total Protein 7.1 g/dL (6.3-8.2)
[2021-09-27 13:30] LABS: Amphetamine Screen,Urine Not Detected (NotDetected); Barbiturate Screen,Urine Not Detected (NotDetected); Benzodiazepines Screen,Urine Not Detected (NotDetected); Cocaine Screen,Urine Not Detected (NotDetected); Methadone Screen, Urine Not Detected (NotDetected); Opiate Screen,Urine Not Detected (NotDetected); Oxycodone Screen, Urine Not Detected (NotDetected); Phencyclidine Screen,Urine Not Detected (NotDetected); Tricyclic Antidepressant,Urine Not Detected (NotDetected); Urn Cannabinoid Scrn Detected (NotDetected)
--- NOTE | 2021-09-27 13:46 | ED ---
Weakness HPI - General Chief complaint: Weakness Stated complaint: weakness Time Seen by Provider: 09/27/21 12:15 Source: patient, family, RN notes reviewed Mode of arrival: ambulatory Limitations: no limitations - History of Present Illness Initial comments: 25-year-old male presents emergency Department chief complaint of generalized fatigue and weakness. Patient states that he's been withdrawing from alcohol and marijuana. Patient states he was admitted for psychiatric treatment started psychiatric medications. He states he just felt tired, this feels weak and not eating and drinking well. Patient denies any recent vomiting no shaking episod es of seizures. Patient states has not had a drink in almost few weeks. Patient denies any other drug use patient offers no complaints. - Related Data Previous Rx's Medication Instructions Recorded Benztropine Mesylate [Cogentin] 0.5 mg PO BID 30 Days tab 09/15/21 Divalproex ER [Depakote ER] 1,000 mg PO HS 30 Days tab 09/15/21 haloperidoL [Haldol] 5 mg PO BID 30 Days tab 09/15/21 Allergies Allergy/AdvReac Type Severity Reaction Status Date / Time No Known Allergies Allergy Verified 09/27/21 12:15 Review of Systems ROS Statement: Those systems with pertinent positive or pertinent negative responses have been documented in the HPI. ROS Other: All systems not noted in ROS Statement are negative. Past Medical History Past Medical History: No Reported History History of Any Multi-Drug Resistant Organisms: None Reported Past Surgical History: No Surgical Hx Reported Past Psychological History: Anxiety, Bipolar, Schizophrenia Smoking Status: Current every day smoker Past Alcohol Use History: Abuse Past Drug Use History: Marijuana - Past Family History Mother Family Medical History: COPD General Exam Limitations: no limitations General appearance: alert, in no apparent distress Head exam: Present: atraumatic, normocephalic, normal inspection Eye exam: Present: normal appearance, PERRL, EOMI. Absent: scleral icterus, conjunctival injection, periorbital swelling ENT exam: Present: normal exam, normal oropharynx, mucous membranes moist Neck exam: Present: normal inspection. Absent: tenderness, meningismus, ly mphadenopathy Respiratory exam: Present: normal lung sounds bilaterally. Absent: respiratory distress, wheezes, rales, rhonchi, stridor Cardiovascular Exam: Present: regular rate, normal rhythm, normal heart sounds. Absent: systolic murmur, diastolic murmur, rubs, gallop, clicks GI/Abdominal exam: Present: soft, normal bowel sounds. Absent: distended, tenderness, guarding, rebound, rigid Neurological exam: Present: alert, oriented X3, CN II-XII intact Skin exam: Present: warm, dry, intact, normal color. Absent: rash Course Vital Signs 09/27/21 12:11 Temperature 98.2 F Pulse Rate 79 Respiratory 18 Rate Blood Pressure 129/83 O2 Sat by Pulse 98 Oximetry Medical Decision Making - Medical Decision Making Patient's laboratory unremarkable, urinalysis unremarkable patient is positive for marijuana. Patient states is not using currently. He does feel better after fluids and eating food. Patient be discharged supination return parameters discussed. - Lab Data Result diagrams: 09/27/21 12:49 09/27/21 12:49 Lab Results 09/27/21 09/27/21 09/27/21 Range/Units 12:25 12:49 12:49 WBC 7.2 (3.8-10.6) k/uL RBC 4.82 (4.30-5.90) m/uL Hgb 14.5 (13.0-17.5) gm/dL Hct 43.9 (39.0-53.0) % MCV 91.2 (80.0-100.0) fL MCH 30.1 (25.0-35.0) pg MCHC 33.1 (31.0-37.0) g/dL RDW 11.9 (11.5-15.5) % Plt Count 212 (150-450) k/uL MPV 7.5 Neutrophils % 63 % Lymphocytes % 24 % Monocytes % 7 % Eosinophils % 4 % Basophils % 1 % Neutrophils # 4.6 (1.3-7.7) k/uL Lymphocytes # 1.7 (1.0-4.8) k/uL Monocytes # 0.5 (0-1.0) k/uL Eosinophils # 0.3 (0-0.7) k/uL Basophils # 0.1 (0-0.2) k/uL Sodium 140 (137-145) mmol/L Potassium 4.2 (3.5-5.1) mmol/L Chloride 107 (98-107) mmol/L Carbon Dioxide 25 (22-30) mmol/L Anion Gap 8 mmol/L BUN 18 (9-20) mg/dL Creatinine 0.78 (0.66-1.25) mg/dL Est GFR (CKD-EPI)AfAm >90 (>60 ml/min/1.73 sqM) Est GFR (CKD-EPI)NonAf >90 (>60 ml/min/1.73 sqM) Glucose 94 (74-99) mg/dL Calcium 9.6 (8.4-10.2) mg/dL Magnesium 1.9 (1.6-2.3) mg/dL Total Bilirubin 0.5 (0.2-1.3) mg/dL AST 40 (17-59) U/L ALT 35 (4-49) U/L Alkaline Phosphatase 63 (38-126) U/L Total Protein 7.1 (6.3-8.2) g/dL Albumin 4.5 (3.5-5.0) g/dL Urine Color Light Yellow Urine Appearance Cloudy (Clear) Urine pH 8.0 (5.0-8.0) Ur Specific [place] 1.010 (1.001-1.035) Urine Protein Negative (Negative) Urine Glucose (UA) Negative (Negative) Urine Ketones Negative (Negative) Urine Blood Negative (Negative) Urine Nitrite Negative (Negative) Urine Bilirubin Negative (Negative) Urine Urobilinogen <2.0 (<2.0) mg/dL Ur Leukocyte Esterase Negative (Negative) Urine RBC 1 (0-5) /hpf Urine WBC 1 (0-5) /hpf Amorphous Sediment Rare H (None) /hpf Urine Opiates Screen Not Detected (NotDetected) Ur Oxycodone Screen Not Detected (NotDetected) Urine Methadone Screen Not Detected (NotDetected) Ur Propoxyphene Screen Not Detected (NotDetected) Ur Barbiturates Screen Not Detected (NotDetected) U Tricyclic Antidepress Not Detected (NotDetected) Ur Phencyclidine Scrn Not Detected (NotDetected) Ur Amphetamines Screen Not Detected (NotDetected) U Methamphetamines Scrn Not Detected (NotDetected) U Benzodiazepines Scrn Not Detected (NotDetected) Urine Cocaine Screen Not Detected (NotDetected) U Marijuana (THC) Screen Detected H (NotDetected) Serum Alcohol <10 mg/dL Disposition Clinical Impression: Fatigue, Weakness Disposition: HOME SELF-CARE Condition: Stable Instructions (If sedation given, give patient instructions): Fatigue (ED) Additional Instructions: Please return to the Emergency Department if symptoms worsen or any other concerns. Is patient prescribed a controlled substance at d/c from ED?: No Referrals: Hossein Becerra MD [Primary Care Provider] - 1-2 days Time of Disposition: 13:46
[2021-09-27 13:57] VITALS: BP 135/82; PULSE 80; RESP 16; TEMP 98
== END 2021-09-27 13:56 | disposition home or self-care (01) ==
LOC: EC 12:08
DX: R53.1 Weakness (principal); R53.83 Other fatigue; F17.200 Nicotine dependence, unspecified, uncomplicated
CPT/HCPCS: 36415; 80053; 83735; 85025; 81001; 80306; 99284; 96360; G0480; 80320

== ENCOUNTER 2024-05-15 09:25 | Inpatient (IN) | payer MEDICAID, OTHER ==
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
[2024-05-15 10:03] LABS: Appearance,Urine Clear (Clear); Bilirubin,Urine Negative (Negative); Blood,Urine Negative (Negative); Color,Urine Colorless; Glucose,Urine (UA) Negative (Negative); Ketones,Urine Negative (Negative); Leukocyte Esterase,Urine Negative (Negative); Nitrite,Urine Negative (Negative); Protein,Urine Negative (Negative); Specific Gravity,Urine 1.005 (1.001-1.035); Urobilinogen,Urine <2.0 mg/dL (<2.0)
[2024-05-15 10:15] LABS: Amphetamine Screen,Urine Not Detected (NotDetected); Barbiturate Screen,Urine Not Detected (NotDetected); Benzodiazepines Screen,Urine Not Detected (NotDetected); Cocaine Screen,Urine Not Detected (NotDetected); Methadone Screen, Urine Not Detected (NotDetected); Opiate Screen,Urine Not Detected (NotDetected); Oxycodone Screen, Urine Not Detected (NotDetected); Phencyclidine Screen,Urine Not Detected (NotDetected); Tricyclic Antidepressant,Urine Not Detected (NotDetected); Urn Cannabinoid Scrn Detected (NotDetected)
[2024-05-15 10:39] LABS: Influenza A Not Detected (Not Detectd); Influenza B Not Detected (Not Detectd); RSV Not Detected (Not Detectd)
[2024-05-15] MEDS ORDERED: MAG HYDROX/AL HYDROX/SIMETH 355 ML BOTTLE PO PRN (13:07)
[2024-05-15] MEDS ORDERED: IBUPROFEN 600 MG TAB PO PRN (13:07)
[2024-05-15] MEDS ORDERED: LORazepam 2 MG/ML INJ IM PRN (13:07)
[2024-05-15] MEDS ORDERED: ACETAMINOPHEN TAB 325 MG TAB PO PRN (13:07)
[2024-05-15] MEDS ORDERED: haloperidoL 5 MG TAB PO PRN (13:07)
[2024-05-15] MEDS ORDERED: LORazepam 1 MG TAB PO PRN (13:07)
[2024-05-15] MEDS ORDERED: HALOPERIDOL LACTATE 5 MG/ML 1 ML VIAL IM PRN (13:07)
[2024-05-15] MEDS ORDERED: QUEtiapine 100 MG TAB PO PRN (13:11)
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
[2024-05-16 08:11] LABS: Basophils # (A) 0.1 k/uL (0-0.2); Basophils % (A) 1 %; Eosinophils # (A) 0.4 k/uL (0-0.7); Eosinophils % (A) 5 %; HCT 47.6 % (39.0-53.0); HGB 15.3 gm/dL (13.0-17.5); Lymphocytes % (A) 37 %; MCHC 32.1 g/dL (31.0-37.0); MCV 90.4 fL (80.0-100.0); Mean Platelet Volume 6.7; Monocytes # (A) 0.4 k/uL (0-1.0); Monocytes % (A) 5 %; Neutrophils # (A) 4.1 k/uL (1.3-7.7); Neutrophils % (A) 51 %; Platelet Count 372 k/uL (150-450); RBC 5.26 m/uL (4.30-5.90); RDW 12.1 % (11.5-15.5)
[2024-05-16] MEDS: NICOTINE 14MG/24HR PATCH TRANSDERM SCH (08:12)
[2024-05-16 08:25] LABS: ALT 15 U/L (4-49); AST 22 U/L (17-59); African American GFR (CKD) >90 (>60 ml/min/1.73 sqM); Albumin 4.8 g/dL (3.5-5.0); Alkaline Phosphatase 67 U/L (38-126); Anion Gap 11 mmol/L; Blood Urea Nitrogen 8 mg/dL (9-20); Calcium 9.9 mg/dL (8.4-10.2); Carbon Dioxide 25 mmol/L (22-30); Chloride 102 mmol/L (98-107); Glucose 95 mg/dL (74-99); Non-African American GFR(CKD) >90 (>60 ml/min/1.73 sqM); Potassium 4.3 mmol/L (3.5-5.1); Sodium 138 mmol/L (137-145); Total Bilirubin 1.5 mg/dL (0.2-1.3); Total Protein 7.5 g/dL (6.3-8.2)
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
[2024-05-16 15:04] LABS: Chol/HDL Ratio 2.54 Ratio; LDL Cholesterol,Calculated 63.2 mg/dL (0.0-131.0); VLDL Calculation 17.42 mg/dL (5.00-40.00)
[2024-05-16 15:28] VITALS: BMI 19.0
[2024-05-16] MEDS: QUEtiapine 50 MG TAB PO SCH (20:47)
--- NOTE | 2024-05-17 13:20 | P.PN ---
Progress Note - Text Progress Note Date: 05/17/24 Interval History: [facility] [place] and was directable and agreeable to speak with radio news writer in the office. Patient has been active in groups, trying to stay optimistic. He has not been able to get in contact with his grandmother or father and patient signed an LAINE today for radio news writer to contact them however they did not meat pickler but voicemail was left. Patient does not feel as though he will be able to return home as this is atypical for them. Patient expressed concerns with [facility] given the recent ones being full and he states not having any other support network where he can stay. Given the patient's recent heavy alcohol use daily that is contributing to his ultimate psychosis, patient was agreeable with exploring rehab to try to help cope with with this to ultimately help not only his mental health but his physical health as well. Patient otherwise denied any paranoia today, stating his appetite has increased and that he is sleeping well. Patient was able to reflect on his previous delusional thoughts stating previously he felt as though he was God however he is not able to realize that the substances were contributing to this thought. At this time patient denies any suicidal or homicidal ideations, intent or plan. Patient denies any auditory, visual hallucinations and denies any paranoia or delusions. Patient denies any side effects from the medications and has been compliant with meds. Mental Status Exam: General Appearance: Patient appears to be stated age is alert, directable, and cooperative. He is dressed in hospital gown with poor grooming Behavior: Patient is calmly seated without any agitated behavior. Speech: Patient's speech is fluent and nonpressured. Mood/Affect: Mood is improving mildly, affect is congruent and blunted. Suicidality/Homicidality: Patient denies having any suicidal or homicidal ideation intent or plan. Perceptions: Patient denies any visual hallucinations and denies any auditory hallucinations Though content/process: There is no evidence of any delusional thought content and thought process is linear and goal-directed. Memory and concentration: AOX3, grossly intact for the purposes of this session Judgment and insight: Improving mildly Assessment Psychosis, unspecified Rule out substance-induced psychotic disorder Generalized anxiety disorder Alcohol use disorder Cannabis use disorder Nicotine dependence Plan: -Patient continues to meet criteria for inpatient psychiatric admission for symptom stabilization and safety. Patient has not signed adult voluntary form and medication consent and was placed in patient's chart. -Medications: Continue [place] 50 mg at bedtime for psychosis/mood stabilization -When necessary Ativan and Haldol for agitation/aggression. -Labs: Reviewed -NRT -nicotine patch -SW on board for discharge planning. Encouraged the patient to participate in milieu. Currently awaiting deferral with workers compensation attorney and court date.
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
[2024-05-18 22:25] VITALS: RESP 12
[2024-05-19 09:14] VITALS: BP 133/93; PULSE 106; TEMP 97.4
[2024-05-19] MEDS: MAGNESIUM HYDROXIDE 2,400 MG/30 ML CUP PO PRN (09:15)
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
== END 2024-05-19 14:32 | disposition home or self-care (01) | DRG 775 ==
LOC: EC 09:25 → 3MHU 13:04
PROVIDERS: ADMIT Psychiatry & Neurology Psychiatry; ATTEND Psychiatry & Neurology Psychiatry
DX: F12.150 Cannabis abuse with psychotic disorder with delusions (principal); R45.851 Suicidal ideations; F41.1 Generalized anxiety disorder; F31.9 Bipolar disorder, unspecified; F20.9 Schizophrenia, unspecified; F17.210 Nicotine dependence, cigarettes, uncomplicated; F10.10 Alcohol abuse, uncomplicated; U07.0 Vaping-related disorder; Z11.52 Encounter for screening for COVID-19; Z91.52 Personal history of nonsuicidal self-harm; Z79.899 Other long term (current) drug therapy; Z56.0 Unemployment, unspecified; Z55.5 Less than a high school diploma
CPT/HCPCS: 80053; 80061; 80306; 81003; 82075; 83036; 84443; 85025; 87636; 99285

== ENCOUNTER 2024-09-24 12:55 | Inpatient (IN) | payer MEDICAID, OTHER ==
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
[2024-09-24 14:43] LABS: Barbiturate Screen,Urine Not Detected (NotDetected); Benzodiazepines Screen,Urine Not Detected (NotDetected); Opiate Screen,Urine Not Detected (NotDetected); Oxycodone Screen, Urine Not Detected (NotDetected); Phencyclidine Screen,Urine Not Detected (NotDetected); Tricyclic Antidepressant,Urine Not Detected (NotDetected); Urn Cannabinoid Scrn Detected (NotDetected)
[2024-09-24 17:29] LABS: RSV Not Detected (Not Detectd)
[2024-09-24] MEDS ORDERED: ACETAMINOPHEN TAB 325 MG TAB PO PRN (19:42)
[2024-09-24] MEDS ORDERED: MAG HYDROX/AL HYDROX/SIMETH 355 ML BOTTLE PO PRN (19:42)
[2024-09-24] MEDS ORDERED: IBUPROFEN 600 MG TAB PO PRN (19:42)
[2024-09-24] MEDS ORDERED: MAGNESIUM HYDROXIDE 2,400 MG/30 ML CUP PO PRN (19:42)
[2024-09-24] MEDS ORDERED: LORazepam 1 MG TAB PO PRN (19:42)
[2024-09-24] MEDS ORDERED: HALOPERIDOL LACTATE 5 MG/ML 1 ML VIAL IM PRN (19:42)
[2024-09-24] MEDS: NICOTINE 14MG/24HR PATCH TRANSDERM SCH (20:59)
--- NOTE | 2024-09-25 06:36 | P.MDCNMH ---
History of Present Illness H&P Date: 09/25/24 28 year old male with no significant past medical history Patient coming in for mental health evaluation Medicine was consulted for medical management Patient denies any fevers chills nausea vomiting abdominal pain chest pain trouble breathing denies any dizziness lightheadedness denies any urinary changes or bowel habit changes denies any focal neurodeficits Review of systems All systems reviewed with pertinent positive negatives as per HPI on exam Constitutional: No acute distress, conversant, pleasant Eyes: Anicteric sclerae, moist conjunctiva, Pupils equal round reactive to light Neck: Supple, no masses, or JVD No carotid bruits No thyromegaly Lungs: Clear to auscultation Clear to percussion Normal respiratory effort, no accessory muscle use Cardiovascular: Heart regular in rate and rhythm, No murmurs, gallops, or rubs No peripheral edema Abdominal: Soft Nontender, no guarding, rebound or rigidity Abdomen moving with respiration Extremities: No digital cyanosis No clubbing Pedal pulses intact and symmetrical Radial pulses intact and symmetrical No calf tenderness Psychiatric: Alert and oriented to person, place and time Neuro Muscles Strength 5/5 in all 4 extremities Sensation to light touch grossly present throughout Cranial nerves II-XII grossly intact Past Medical History Past Medical History: No Reported History History of Any Multi-Drug Resistant Organisms: None Reported Past Surgical History: No Surgical Hx Reported Past Anesthesia/Blood Transfusion Reactions: No Reported Reaction Past Psychological History: Anxiety, Bipolar, Schizophrenia Smoking Status: Current every day smoker, Vaper Past Alcohol Use History: Heavy Past Drug Use History: Marijuana - Past Family History Mother Family Medical History: COPD Medications and Allergies Home Medications Medication Instructions Recorded Confirmed Type No Known Home Medications 09/24/24 09/24/24 History Allergies Allergy/AdvReac Type Severity Reaction Status Date / Time No Known Allergies Allergy Verified 09/24/24 16:57 Physical Exam Vitals: Vital Signs Temp Pulse Pulse Resp BP BP Pulse Ox 09/24/24 21:00 97.4 F L 91 18 149/88 99 09/24/24 20:45 97.8 F 89 18 155/90 100 09/24/24 19:47 97.9 F 65 18 128/94 99 09/24/24 13:09 97.8 F 84 16 123/82 99 Intake and Output 09/24/24 09/24/24 09/25/24 14:59 22:59 06:59 Other: Weight 70.307 kg 67.642 kg Cranial Nerve Examination - Cranial Nerves Cranial Nerve II- Optic: Intact Cranial Nerve III- Oculomotor: Intact Cranial Nerve IV- Trochlear: Intact Cranial Nerve V- Trigeminal: Intact Cranial Nerve - Abducens: Intact Cranial Nerve VII- Facial: Intact Cranial Nerve VIII- Auditory: Intact Cranial Nerve IX- Glossopharyngeal: Intact Cranial Nerve X- Vagus: Intact Cranial Nerve XI- Accessory: Intact Cranial Nerve XII- Hypoglossal: Intact Results Labs: Abnormal Lab Results - Last 24 Hours (Table) 09/24/24 Range/Units 13:59 U Marijuana (THC) Screen Detected H (NotDetected) Assessment and Plan Assessment: polysubstance abuse tobacco smoking counseled to quit smoking nicotine replacement therapy offered urine drug screen positive for marijuana acute respiratory viral panel negative no other blood work available for review at this time thank you for this consultation
[2024-09-25 07:30] LABS: Basophils # (A) 0.07 10*3/uL (0.00-0.10); Basophils % (A) 0.8 %; Eosinophils # (A) 0.33 10*3/uL (0.04-0.35); Eosinophils % (A) 3.7 %; HCT 44.0 % (39.6-50.0); HGB 15.4 g/dL (13.0-17.0); Lymphocytes # (A) 3.28 10*3/uL (0.90-5.00); Lymphocytes % (A) 36.6 %; MCH 29.6 pg (27.0-32.0); MCHC 35.0 g/dL (32.0-37.0); MCV 84.6 fL (80.0-97.0); Monocytes # (A) 0.50 10*3/uL (0.20-1.00); Monocytes % (A) 5.6 %; Neutrophils # (A) 4.78 10*3/uL (1.80-7.70); Neutrophils % (A) 53.2 %; Platelet Count 354 10*3/uL (140-440); RBC 5.20 10*6/uL (4.40-5.60); RDW 11.7 % (11.5-14.5); WBC 8.97 10*3/uL (4.50-10.00)
[2024-09-25 07:56] LABS: ALT 21 U/L (4-49); AST 30 U/L (17-59); African American GFR (CKD) >90 (>60 ml/min/1.73 sqM); Albumin 5.2 g/dL (3.5-5.0); Alkaline Phosphatase 86 U/L (38-126); Anion Gap 16 mmol/L; Blood Urea Nitrogen 12 mg/dL (9-20); Calcium 10.3 mg/dL (8.4-10.2); Carbon Dioxide 18 mmol/L (22-30); Chloride 110 mmol/L (98-107); Glucose 97 mg/dL (74-99); Non-African American GFR(CKD) >90 (>60 ml/min/1.73 sqM); Potassium 3.9 mmol/L (3.5-5.1); Sodium 144 mmol/L (137-145); Total Protein 8.1 g/dL (6.3-8.2)
[2024-09-25] MEDS ORDERED: NICOTINE 14MG/24HR PATCH TRANSDERM SCH (09:00)
[2024-09-25 10:57] LABS: Cholesterol 162.00 mg/dL (0.00-200.00); HDL Cholesterol 62.70 mg/dL (40.00-60.00); LDL Cholesterol,Calculated 86.6 mg/dL (0.0-131.0); Triglycerides 63.40 mg/dL (0.00-149.00); VLDL Calculation 12.68 mg/dL (5.00-40.00)
--- NOTE | 2024-09-25 13:54 | P.HP ---
Psychiatric H&P - . H&P Date: 09/25/24 History & Physical: Allergies Allergy/AdvReac Type Severity Reaction Status Date / Time No Known Allergies Allergy Verified 09/24/24 16:57 Vital Signs Temp 97.1 F L 09/25/24 09:00 Pulse 106 H 09/25/24 09:00 Resp 16 09/25/24 09:00 BP 114/73 09/25/24 09:00 Pulse Ox 99 09/25/24 09:00 FiO2 Intake & Output 09/24/24 09/25/24 09/25/24 18:59 06:59 18:59 Weight 70.307 kg 67.642 kg Laboratory Last Values WBC 8.97 10*3/uL (4.50-10.00) 09/25/24 07:03 RBC 5.20 10*6/uL (4.40-5.60) 09/25/24 07:03 Hgb 15.4 g/dL (13.0-17.0) 09/25/24 07:03 Hct 44.0 % (39.6-50.0) 09/25/24 07:03 MCV 84.6 fL (80.0-97.0) 09/25/24 07:03 MCH 29.6 pg (27.0-32.0) 09/25/24 07:03 MCHC 35.0 g/dL (32.0-37.0) 09/25/24 07:03 Plt Count 354 10*3/uL (140-440) 09/25/24 07:03 MPV 9.0 fL (9.5-12.2) L 09/25/24 07:03 Immature Gran % (Auto) 0.1 % 09/25/24 07:03 Neutrophils % 53.2 % 09/25/24 07:03 Lymphocytes % 36.6 % 09/25/24 07:03 Monocytes % 5.6 % 09/25/24 07:03 Eosinophils % 3.7 % 09/25/24 07:03 Basophils % 0.8 % 09/25/24 07:03 Immature Gran # 0.01 10*3/uL (0.00-0.04) 09/25/24 07:03 Neutrophils # 4.78 10*3/uL (1.80-7.70) 09/25/24 07:03 Lymphocytes # 3.28 10*3/uL (0.90-5.00) 09/25/24 07:03 Monocytes # 0.50 10*3/uL (0.20-1.00) 09/25/24 07:03 Eosinophils # 0.33 10*3/uL (0.04-0.35) 09/25/24 07:03 Basophils # 0.07 10*3/uL (0.00-0.10) 09/25/24 07:03 Sodium 144 mmol/L (137-145) 09/25/24 07:03 Potassium 3.9 mmol/L (3.5-5.1) 09/25/24 07:03 Chloride 110 mmol/L (98-107) H 09/25/24 07:03 Carbon Dioxide 18 mmol/L (22-30) L 09/25/24 07:03 Anion Gap 16 mmol/L 09/25/24 07:03 BUN 12 mg/dL (9-20) 09/25/24 07:03 Creatinine 0.96 mg/dL (0.66-1.25) 09/25/24 07:03 Est GFR (CKD-EPI)AfAm >90 (>60 ml/min/1.73 sqM) 09/25/24 07:03 Est GFR (CKD-EPI)NonAf >90 (>60 ml/min/1.73 sqM) 09/25/24 07:03 Glucose 97 mg/dL (74-99) 09/25/24 07:[address] Glu mg/dL 97 mg/dL 09/25/24 07:03 Hemoglobin A1c 5.0 % (<=6.0) 09/25/24 07:03 Calcium 10.3 mg/dL (8.4-10.2) H 09/25/24 07:03 Total Bilirubin 1.5 mg/dL (0.2-1.3) H 09/25/24 07:03 AST 30 U/L (17-59) 09/25/24 07:03 ALT 21 U/L (4-49) 09/25/24 07:03 Alkaline Phosphatase 86 U/L (38-126) 09/25/24 07:03 Total Protein 8.1 g/dL (6.3-8.2) 09/25/24 07:03 Albumin 5.2 g/dL (3.5-5.0) H 09/25/24 07:03 Triglycerides 63.40 mg/dL (0.00-149.00) 09/25/24 07:03 Cholesterol 162.00 mg/dL (0.00-200.00) 09/25/24 07:03 LDL Cholesterol, Calc 86.6 mg/dL (0.0-131.0) 09/25/24 07:03 VLDL Cholesterol, Calc 12.68 mg/dL (5.00-40.00) 09/25/24 07:03 HDL Cholesterol 62.70 mg/dL (40.00-60.00) H 09/25/24 07:03 Cholesterol/HDL Ratio 2.58 Ratio 09/25/24 07:03 TSH 2.990 mIU/L (0.465-4.680) 09/25/24 07:03 Urine Opiates Screen Not Detected (NotDetected) 09/24/24 13:59 Ur Oxycodone Screen Not Detected (NotDetected) 09/24/24 13:59 Urine Methadone Screen Not Detected (NotDetected) 09/24/24 13:59 Ur Barbiturates Screen Not Detected (NotDetected) 09/24/24 13:59 U Tricyclic Antidepress Not Detected (NotDetected) 09/24/24 13:59 Ur Phencyclidine Scrn Not Detected (NotDetected) 09/24/24 13:59 Ur Amphetamines Screen Not Detected (NotDetected) 09/24/24 13:59 U Methamphetamines Scrn Not Detected (NotDetected) 09/24/24 13:59 U Benzodiazepines Scrn Not Detected (NotDetected) 09/24/24 13:59 Urine Cocaine Screen Not Detected (NotDetected) 09/24/24 13:59 U Marijuana (THC) Screen Detected (NotDetected) H 09/24/24 13:59 Influenza Type A (PCR) Not Detected (Not Detectd) 09/24/24 16:45 Influenza Type B (PCR) Not Detected (Not Detectd) 09/24/24 16:45 RSV (PCR) Not Detected (Not Detectd) 09/24/24 16:45 SARS-CoV-2 (PCR) Not Detected (Not Detectd) 09/24/24 16:45 09/25/24 13:32 IDENTIFYING DATA: Patient is a 28-year-old male, he is single he has no kids 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 Per EPS nurse, "pt sitting in doorway of room; pt moved into room and was agreeable to speak with fiction and nonfiction writer prose. pt states that "I'm still suffering with stuff I've been working on. 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 pt states that he has also been "having some trouble about a deferral with [facility] and they are trying to get it extended or something." pt appears to not understand deferral and need to comply with tx with outpatient provider. pt states that [facility] is filing to get deferral "extended" because "I missed an appointment where I had to do a pee test. I went there and waited and nobody took me back to a room, so I left. Now they are trying to get it extended." pt denies SI and HI. However, pt states that his mother "feels threatened because of the things that I write." pt denies hallucinations before stating, "I have almost like these split personality moments." pt admits to being paranoid and states that he does feel as though people are after him at times. pt denies any change in sleep or appetite. pt attempts to cooperate with assessment. pt's mother provided hospital with copies of PPO that pt was given today, a copy of eviction notice filed on 09/20/24, printed screenshots of posts from pt's Youtube, and copies of numerous pages from pt's writing." Patient seen and evaluated on the unit and was agreeable with speaking to fiction and nonfiction writer prose in office. Patient appeared to be somewhat anxious, fleeting thoughts/racing thoughts. Spoke about struggling with "paranoia" and claims that he has been isolating himself more. He was fairly vague and guarded about what had occurred at home and the arguments with his mother. He states that his mother is affecting him however does not want to be living with her any longer. He claims that he has been isolating more, and "assuming more things". He gave an example of believing that maybe his parents are not really his parents and questioned who they actually were. He claims that he had several postings on social media about paranoid subjects and conspiracy theories and claims that his mom saw that and was concerned. He claimed that his mood and anxiety are fair at this time. He has very poor insight and poor judgment. Does not believe he needs medications at this time or mental health treatment. We spoke about the demand for hearing already filed. Anxiety sleep is fair appetite is poor. He has not been taking his medications since last discharge in May of the mental health unit. Denies any auditory or visual hallucinations denies any suicidal or homicidal ideations intent or plan. Claims that he smokes marijuana heavily every day. Also claims that he smokes cigarettes. Urine drug screen is positive for THC PAST PSYCHIATRIC HISTORY: Patient has a history of brief psychotic disorder, polysubstance use disorder. Patient denies being on any psychiatric medications, claims that he was previously on Seroquel however stopped taking it. He has tried Haldol, Cogentin, Depakote previously. Patient reports 2 previous inpatient hospitalizations his last inpatient hospitalization was in May 2024. Patient denies any psychiatric outpatient follow-up. He reports 1 remote suicide attempt as a kid when he OD. PMH: as per ER note ALLERGIES: as per EMR SUBSTANCE USE HISTORY: Patient reports ingesting high amounts of THC via vaporized daily, nicotine daily. FAMILY PSYCHIATRIC/SUBSTANCE USE HISTORY: Patient states his sister suffers from some form of mental illness, his dad previously abused alcohol. SOCIAL HISTORY: Patient is single and has no children. He claims that he is homeless, recently evicted from his mother's house. 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 MENTAL STATUS EXAM: General Appearance: Patient appears to be tall, thin, short hair, stated age is alert, directable, and attempts to cooperate. Patient appears to have fair hygiene and grooming. Behavior: Patient is seated without any agitated behavior. Attempts to cooperate Speech: Patient's speech is fluent and nonpressured. Rambling Mood/Affect: Patient reports their mood is "a bit better", affect is congruent and constricted. Suicidality/Homicidality: Patient denies having any homicidal ideation intent or plan. Denies any suicidal ideations intent or plan Perceptions: Patient denies any visual hallucinations and denies any auditory hallucinations Though content/process: Endorsing paranoia, conspiracy theories, rambling, and illogical at times. Rationalizing Memory and concentration: AOX3, grossly intact for the purposes of this session. Can spell "WORLD" backwards Judgment and insight: Poor STRENGTHS/WEAKNESSES: strength is that patient is resilient. Weakness is that patient has poor judgment, uses high amounts of cannabis and is impulsive with poor insight INTELLECT: Average IMPRESSIONS: Schizophrenia Generalized anxiety disorder Cannabis use disorder Nicotine dependence PLAN: -Patient is admitted under involuntary status to [facility]HU for stabilization of psychiatric symptoms and safety. Patient was previously on a deferral, has not been taking his medications not going for follow-up, demand for hearing was already filed. Patient has not signed adult voluntary form however he did sign medication consent and is placed in patient's chart. -Medications : Start Invega p.o. 3 mg daily at bedtime for psychosis/mood stabilization -Ativan and Haldol PRN for agitation/aggression -Patient was counselled on substance abuse and did not desire to cut back on use -Patient was informed of the risks, benefits and side effects of the medication and patient verbally consented to taking the medications. Patient signed med consent form and was placed in chart. He was offered medication information and accepted it. -Internal Medicine consult to perform medical evaluation and physical. -NRT -nicotine patch -SW on board for discharge planning. Encourage patient to participate in groups to work on coping skills. We will need to await court hearing date as demand for hearing has been filed. 09/25/24 13:33 09/25/24 13:47
[2024-09-25] MEDS: PALIPERIDONE 3 MG TAB.ER.24 PO SCH (21:34)
[2024-09-26 12:33] LABS: Bilirubin,Urine Negative (Negative); Blood,Urine Trace (Negative); Color,Urine Colorless; Glucose,Urine (UA) Negative (Negative); Ketones,Urine 1+ (Negative); Leukocyte Esterase,Urine Negative (Negative); Nitrite,Urine Negative (Negative); PH, Urine 6.0 (5.0-8.0); Protein,Urine Negative (Negative); RBC,Urine 2 /hpf (0-5); Specific Gravity,Urine 1.011 (1.001-1.035); Urobilinogen,Urine <2.0 mg/dL (<2.0); WBC,Urine 1 /hpf (0-5)
--- NOTE | 2024-09-26 12:49 | P.PN ---
Progress Note - Text Progress Note Date: 09/26/24 Interval History: Patient was seen today for psychiatric follow up. appears to have mild improve ment in his hygiene and grooming. appears more focused, affect improving. states that after taking the invega he admitts to feeling less paranoid about others. we spoke more about side effect profile and its benefits and drawcks. he states that his mood is improving. continuesto have anxiety, states that he is anxious about where he will be going upon discharge as he was evicted from his mothers h ouse. slept fairly last night, no issues with ppetite. denies any Ah or Vh and denies any Si or HI. MENTAL STATUS EXAM: General Appearance: Patient appears to be tall, thin, short hair, stated age is alert, directable, and attempts to cooperate. Patient appears to have fair hygiene and grooming. Behavior: Patient is seated without any agitated behavior. Attempts to cooperate, appears anxious Speech: Patient's speech is fluent and nonpressured. Rambling, improving midlly Mood/Affect: Patient reports their mood is "better", affect is congruent and constricted. Suicidality/Homicidality: Patient denies having any homicidal ideation intent or plan. Denies any suicidal ideations intent or plan Perceptions: Patient denies any visual hallucinations and denies any auditory hallucinations Though content/process: improving paranoia, conspiracy theories, rambling, more logical. Memory and concentration: AOX3, grossly intact for the purposes of this session Judgment and insight: Poor, improving mildly IMPRESSIONS: Schizophrenia Generalized anxiety disorder Cannabis use disorder Nicotine dependence PLAN: -Patient is admitted under involuntary status to [facility] for stabilization of psychi atric symptoms and safety. Patient was previously on a deferral, has not been taking his medications not going for follow-up, demand for hearing was already filed -Medications : increase Invega p.o. 3 mg bid for psychosis/mood stabilization, added melatonin 5 mg hs for sleep. -Ativan and Haldol PRN for agitation/aggression -NRT -nicotine patch -SW on board for discharge planning. Encourage patient to participate in groups to work on coping skills. We will need to await court hearing date as demand for hearing has been filed. patient is currently homeless
[2024-09-26] MEDS: MELATONIN 5 MG TABLET PO SCH (21:08)
[2024-09-26] MEDS: PALIPERIDONE 3 MG TAB.ER.24 PO SCH (21:08)
[2024-09-27] MEDS: NICOTINE 21MG/24HR PATCH TRANSDERM SCH (08:55)
--- NOTE | 2024-09-27 12:07 | P.PN ---
Progress Note - Text Progress Note Date: 09/27/24 Interval History: Patient was seen today for psychiatric follow up. appears to have mild improve ment in his hygiene and grooming. Patient claims that he is feeling more hopeful about his medications. Claims that he would like to be transition onto the long-acting injection to help ensure his compliance. He states that taking too many medications orally confuses him. He states that he has been going to groups has been showering. Claims that he slept better without melatonin last night. Not reporting any side effects at this time. Has been eating well. He is denying any depression or anxiety at this time. He claims that he will likely be being to go to a correction upon discharge. denies any Ah or Vh and denies any Si or HI. MENTAL STATUS EXAM: General Appearance: Patient appears to be tall, thin, short hair, stated age is alert, directable, and attempts to cooperate. Patient appears to have fair hygiene and grooming. Behavior: Patient is seated without any agitated behavior. Attempts to cooperate, appears anxious, improving mildly Speech: Patient's speech is fluent and nonpressured. Rambling, improving midlly Mood/Affect: Patient reports their mood is "better", affect is congruent and improving Suicidality/Homicidality: Patient denies having any homicidal ideation intent or plan. Denies any suicidal ideations intent or plan Perceptions: Patient denies any visual hallucinations and denies any auditory hallucinations Though content/process: improving paranoia, more goal oriented. Not endorsing any delusions today. Memory and concentration: AOX3, grossly intact for the purposes of this session Judgment and insight: Poor, improving mildly IMPRESSIONS: Schizophrenia Generalized anxiety disorder Cannabis use disorder Nicotine dependence PLAN: -Patient is admitted under involuntary status to [facility] for stabilization of psychiatric symptoms and safety. Patient was previously on a deferral, has not been taking his medications not going for follow-up, demand for hearing was already filed -Medications : Invega p.o. 3 mg bid for psychosis/mood stabilization, melatonin 5 mg hs for sleep. will give Invega sustenna 234 mg IM loading dose tomorrow morning -Ativan and Haldol PRN for agitation/aggression -NRT -nicotine patch -SW on board for discharge planning. Encourage patient to participate in groups to work on coping skills. We will need to await court hearing date as demand for hearing has been filed. patient is currently homeless
[2024-09-27] MEDS: MULTIVITAMINS, THERA 1 EACH TAB PO SCH (14:35)
[2024-09-28] MEDS: PALIPERIDONE IM 234 MG/1.5 ML SYG IM ONE (10:39)
--- NOTE | 2024-09-28 12:20 | P.PN ---
Progress Note - Text Progress Note Date: 09/28/24 Interval History: Patient was seen today for psychiatric follow up. appears to have mild improve ment in his hygiene and grooming. Patient has been seen more visible on the unit interacting with others going to groups. Claims that he is doing better today, claims that the paranoia has been decreasing since being on the medications. He claims that he did feel a bit "groggy" last night and asked about other medication options for sleep. After knowing the different options he wanted to have/try a higher dose of melatonin for tonight and go from there. Claims he has been showering well, eating well. He received the long-acting injection this morning tolerated it well. We spoke about receiving the second dose Wednesday morning which she is okay with. He is denying any depression or anxiety at this time. denies any Ah or Vh and denies any Si or HI. MENTAL STATUS EXAM: General Appearance: Patient appears to be tall, thin, short hair, stated age is alert, directable, and attempts to cooperate. Patient appears to have fair hygiene and grooming. Behavior: Patient is seated without any agitated behavior. Attempts to cooperate, less anxious, improving mildly Speech: Patient's speech is fluent and nonpressured. less Rambling, improving midlly Mood/Affect: Patient reports their mood is "alright", affect is congruent and improving Suicidality/Homicidality: Patient denies having any homicidal ideation intent or plan. Denies any suicidal ideations intent or plan Perceptions: Patient denies any visual hallucinations and denies any auditory hallucinations Though content/process: improving paranoia, more goal oriented. Not endorsing any delusions today. More future oriented today Memory and concentration: AOX3, grossly intact for the purposes of this session Judgment and insight: improving mildly IMPRESSIONS: Schizophrenia Generalized anxiety disorder Cannabis use disorder Nicotine dependence PLAN: -Patient is admitted under involuntary status to [facility] for stabilization of psychiatric symptoms and safety. Patient was previously on a deferral, has not been taking his medications not going for follow-up, demand for hearing was already filed -Medications : decrease/taper Invega p.o. 3 mg QHS for psychosis/mood stabilization, d/c after wednesday night dose, increase melatonin 10 mg hs for sleep. received Invega sustenna 234 mg IM loading dose on 09/28 and next dose of 156 mg IM will be due 10/02 prior to discharge -Ativan and Haldol PRN for agitation/aggression -NRT -nicotine patch - on board for discharge planning. Encourage patient to participate in groups to work on coping skills. We will need to await court hearing date as demand for hearing has been filed. patient is currently homeless, likely discharge wednesday
[2024-09-28] MEDS: PALIPERIDONE 3 MG TAB.ER.24 PO SCH (20:53)
[2024-09-28] MEDS: MELATONIN 5 MG TABLET PO SCH (20:53)
--- NOTE | 2024-09-29 11:45 | P.PN ---
Progress Note - Text Progress Note Date: 09/29/24 Interval History: Patient was seen today for psychiatric follow up. Patient was wandering the h allways earlier, was seen participating in group. He appears to have improvement in hygiene and grooming. Claims that he is doing better with the medications, claims that she is thinking a bit more clearly. Claims that he is no longer having the paranoid thoughts. We spoke again about the long-acting injection and how you will be receiving a second dose Wednesday morning which she is glad to hear. He claims that he would also be homeless and will be staying at the group home for a few days and also possibly hotel rooms. He needs to have his job and will continue to go to that. Claims he has been going to groups attending participate as best as he can, denies any depression or anxiety. That he gets to go to better with melatonin, no issues with appetite at this time. denies any Ah or Vh and denies any Si or HI. MENTAL STATUS EXAM: General Appearance: Patient appears to be tall, thin, short hair, stated age is alert, directable, and attempts to cooperate. Patient appears to have fair hygiene and grooming. Behavior: Patient is seated without any agitated behavior. Attempts to cooperate, less anxious, improving mildly Speech: Patient's speech is fluent and nonpressured. less Rambling, improving midlly Mood/Affect: Patient reports their mood is "good", affect is congruent and improving Suicidality/Homicidality: Patient denies having any homicidal ideation intent or plan. Denies any suicidal ideations intent or plan Perceptions: Patient denies any visual hallucinations and denies any auditory hallucinations Though content/process: improving paranoia, more goal oriented. Not endorsing any delusions today. More future oriented today Memory and concentration: AOX3, grossly intact for the purposes of this session Judgment and insight: improving mildly IMPRESSIONS: Schizophrenia Generalized anxiety disorder Cannabis use disorder Nicotine dependence PLAN: -Patient is admitted under involuntary status to [facility] for stabilization of psychiatric symptoms and safety. Patient was previously on a deferral, has not been taking his medications not going for follow-up, demand for hearing was already filed -Medications : Invega p.o. 3 mg QHS for psychosis/mood stabilization, d/c after wednesday night dose, melatonin 10 mg hs for sleep. received Invega sustenna 234 mg IM loading dose on 09/28 and next dose of 156 mg IM will be due monday 10/02 prior to discharge -Ativan and Haldol PRN for agitation/aggression -NRT - nicotine patch - on board for discharge planning. Encourage patient to participate in groups to work on coping skills. full court hearing scheduled for 10/04. patient is currently homeless, likely discharge wednesday after patient receives his second CHRISTIE dose
[2024-09-30] MEDS ORDERED: ARTIFICIAL TEARS-HYPROMELLOSE DROPS 15 ML BTL BOTH EYES PRN (05:20)
[2024-09-30] MEDS: KETOTIFEN 0.025% OPHTH DROPS 5 ML BTL BOTH EYES STA (05:39)
[2024-09-30] MEDS: KETOTIFEN 0.025% OPHTH DROPS 5 ML BTL BOTH EYES SCH (05:48)
[2024-09-30] MEDS ORDERED: KETOTIFEN 0.025% OPHTH DROPS 5 ML BTL BOTH EYES SCH (09:00)
[2024-09-30] MEDS: LORATADINE 10 MG TAB PO PRN (21:23)
--- NOTE | 2024-10-01 23:00 | P.PN ---
Progress Note - Text Progress Note Date: 09/30/24 Interval History: Patient was seen today for psychiatric follow up. Patient was wandering the lm lways, is calm, polite and cooperative. He has been compliant with his medications, denies side effects. Thoughts appears linear and goal-directed. He denies SI/HI, auditory or visual hallucinations. MENTAL STATUS EXAM: General Appearance: Patient appears to be tall, thin, short hair, stated age is alert, directable, and attempts to cooperate, average hygiene and grooming. Behavior: Patient is standing without any agitated behavior. Attempts to cooperate. Speech: Patient's speech is fluent and nonpressured. Mood/Affect: Patient reports their mood is "good", affect is congruent and improving Suicidality/Homicidality: Patient denies having any homicidal ideation intent or plan. Denies any suicidal ideations intent or plan Perceptions: Patient denies any visual hallucinations and denies any auditory hallucinations Though content/process: Not endorsing any delusions today.Linear, goal-directed Memory and concentration: AOX3, grossly intact for the purposes of this session Judgment and insight: improving mildly IMPRESSIONS/PLAN: -Continue current diagnoses. -Continue medications as currently prescribed. He is scheduled for the second dose of Invega Sustenna 156 mg IM for Wednesday. -Ativan and Haldol PRN for agitation/aggression -NRT - nicotine patch -SW on board for discharge planning. Encourage patient to participate in groups to work on coping skills.
--- NOTE | 2024-10-01 23:01 | P.PN ---
Progress Note - Text Progress Note Date: 10/01/24 Interval History: Patient was seen today for psychiatric follow up in his room where he was vik dove after dinner. He is calm, pleasant and cooperative. He has been compliant with his medications, denies side effects. Thoughts appear linear. logical and goal-directed. He denies SI/HI, auditory or visual hallucinations. MENTAL STATUS EXAM: General Appearance: Patient appears to be tall, thin, short hair, stated age,average hygiene and grooming. Behavior: Patient is standing without any agitated behavior. Attempts to cooperate. Speech: Patient's speech is fluent and nonpressured. Mood/Affect: Patient reports their mood is "good", affect is congruent and improving Suicidality/Homicidality: Patient denies having any homicidal ideation intent or plan. Denies any suicidal ideations intent or plan Perceptions: Patient denies any visual hallucinations and denies any auditory hallucinations Though content/process: Not endorsing any delusions today.Linear, goal-directed Memory and concentration: AOX3, grossly intact for the purposes of this session Judgment and insight: improving mildly IMPRESSIONS/PLAN: -Continue current diagnoses. -Continue medications as currently prescribed. He is scheduled for the second dose of Invega Sustenna 156 mg IM for Wednesday. -Ativan and Haldol PRN for agitation/aggression -NRT - nicotine patch -SW on board for discharge planning. Encourage patient to participate in groups to work on coping skills.
[2024-10-01 23:43] VITALS: RESP 18
[2024-10-02 08:00] VITALS: BP 107/73; PULSE 132; TEMP 97.4
[2024-10-02] MEDS: PALIPERIDONE IM 156 MG/ML SYG IM ONE (08:26)
--- NOTE | 2024-10-02 11:23 | P.DS ---
Providers Date of admission: 09/24/24 19:37 Expected date of discharge: 10/02/24 Attending physician: Noel Reed MD Consults: 09/24/24 19:42 Consult Physician Routine Consulting Provider: Meme Bean Consult Reason/Comments: H&P and medical Do you want consulting provider notified?: Yes Primary care physician: Stated None - Discharge Diagnosis(es) (1) Schizophrenia Current Visit: Yes Status: Acute Priority: High (2) Cannabis use disorder Current Visit: Yes Status: Acute Priority: Medium (3) Nicotine dependence Current Visit: Yes Status: Acute Priority: Low (4) Generalized anxiety disorder Current Visit: Yes Status: Acute Priority: Medium (5) Homelessness Current Visit: Yes Status: Acute Priority: Medium Hospital Course: Admission HPI: Admission note was completed by lead technical writer "Patient is a 28-year-old male, he is single he has no kids he currently works for [employer], was recently evicted from his mother's house. Patient presented to the hospital with psychosis. Per EPS nurse, "pt sitting in doorway of room; pt moved into room and was agreeable to speak with lead technical writer. pt states that "I'm still suffering with stuff I've been working on. 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 pt states that he has also been "having some trouble about a deferral with [facility] and they are trying to get it extended or something." pt appears to not understand deferral and need to comply with tx with outpatient provider. pt states that [facility] is filing to get deferral "extended" because "I missed an appointment where I had to do a pee test. I went there and waited and nobody took me back to a room, so I left. Now they are trying to get it extended." pt denies SI and HI. However, pt states that his mother "feels threatened because of the things that I write." pt denies hallucinations before stating, "I have almost like these split personality moments." pt admits to being paranoid and states that he does feel as though people are after him at times. pt denies any change in sleep or appetite. pt attempts to cooperate with assessment. pt's mother provided hospital with copies of PPO that pt was given today, a copy of eviction notice filed on 09/20/24, printed screenshots of posts from pt's Youtube, and copies of numerous pages from pt's writing." Patient seen and evaluated on the unit and was agreeable with speaking to lead technical writer in [facility]. Patient appeared to be somewhat anxious, fleeting thoughts/racing thoughts. Spoke about struggling with "paranoia" and claims that he has been isolating himself more. He was fairly vague and guarded about what had occurred at home and the arguments with his mother. He states that his mother is affecting him however does not want to be living with her any longer. He claims that he has been isolating more, and "assuming more things". He gave an example of believing that maybe his parents are not really his parents and questioned who they actually were. He claims that he had several postings on social media about paranoid subjects and conspiracy theories and claims that his mom saw that and was concerned. He claimed that his mood and anxiety are fair at this time. He has very poor insight and poor judgment. Does not believe he needs medications at this time or mental health treatment. We spoke about the demand for hearing already filed. Anxiety sleep is fair appetite is poor. He has not been taking his medications since last discharge in May of the mental health unit. Denies any auditory or visual hallucinations denies any suicidal or homicidal ideations intent or plan. Claims that he smokes marijuana heavily every day. Also claims that he smokes cigarettes. Urine drug screen is positive for THC." Hospital course: Upon admission to the unit patient was admitted involuntarily on an active deferral and a demand for hearing was filed. Patients court date is scheduled for this wednesday 10/04 at 9 am. Patient was initially bizarre, paranoid however with time and treatment patient got along well with other patients on the unit and followed unit protocol. Patient was compliant with the medications and denied any side effects throughout hospital course. Patient was started on Invega p.o. increased to a dose of 6 mg total daily for psychosis/mood stabilization. Patient was transition onto long-acting injection was given Invega Sustenna 234 mg IM on 09/28 and second dose of injection 156 mg IM was given on 10/02. He will be due for his next maintenance dose of 170 mg IM on 10/30 at [facility]. Melatonin 10 mg nightly for sleep. Patient spoke of his stressors and engaged in therapy both group/activity therapy. Patient was also seen by medical team for history and physical exam. Throughout the course of the hospitalization patient gradually improved with regards to psychosis, sleep and became more future oriented with improved insight and judgment. On the day of discharge patient denied any suicidal or homicidal ideations intent or plan denied any auditory or visual hallucinations. Patient endorsed wanting to live for their health and family. The patient denied any access to guns or weapons. Patient denied any paranoia and did not endorse any delusions. Patient does have a significant history of substance abuse and was counseled on abstaining from all substances including alcohol and marijuana. Patient was offered however declined inpatient substance-abuse rehab. Patient elected to do outpatient substance use treatment program through their outpatient provider. Patient was also counseled on the medications and need for regular compliance and was encouraged to follow-up with their outpatient appointment for mental health and also for primary care. Patient is effected from his mother's house, currently homeless however is agreeable to stay at the local detention currently. Mental status exam: General Appearance: Patient appears to be thin, short hair, stated age is alert, pleasant, and cooperative. Patient is in no acute distress and has improved hygiene and grooming Behavior: Patient is calmly seated without any agitated behavior. Speech: Patient's speech is fluent and nonpressured. Mood/Affect: Patient reports their mood is "good", affect is congruent and euthymic. Suicidality/Homicidality: Patient denies having any suicidal or homicidal ideation intent or plan. Perceptions: Patient denies any auditory or visual hallucinations. Though content/process: There is no evidence of any delusional thought content and thought process is linear and goal-directed. Memory and concentration: AOX3, grossly intact for the purposes of this session. Can spell "WORLD" backwards correctly. Judgment and insight: improved with guarded prognosis Impression: Schizophrenia Generalized anxiety disorder Cannabis use disorder Nicotine dependence Homelessness Plan: -Continue with discharge today as patient has improved and stabilized psychiatrically and is not currently an imminent threat to themself and/or others. Patient will remain at chronically elevated risk for harm to self and/or others due to their impulsivity and substance abuse. -Continue medications: Patient was titrated off of p.o. Invega.Patient was transition onto long-acting injection was given Invega Sustenna 234 mg IM on 09/28 and second dose of injection 156 mg IM was given on 10/02. He will be due for his next maintenance dose of 170 mg IM on 10/30 at [facility]. Continue with melatonin 10 mg nightly for sleep -Patient was counseled on the need for medication compliance and appropriate follow-up at mental health and also primary care for medical issues. Patient verbalized understanding and agreed. -Social work to help coordinate patients discharge today. also to ensure safe home environment that guns/weapons are either removed from the home or locked away. Social work also to arrange for patients follow up appointments with [facility] for psychiatric care along with follow up with primary care provider. -Patient was reminded of his upcoming court hearing on 10/04 at 9 AM -Patient counseled on abstaining from recreational drugs and marijuana and alcohol. Was informed/educated on the adverse effects on their physical and mental health. Patient verbally agreed and understood. Patient was offered substance abuse treatment however declined at this time. -Patient was instructed to return to the hospital or seek immediate medical care if their psychiatric or medical symptoms do worsen or reoccur. Allergies Allergy/AdvReac Type Severity Reaction Status Date / Time No Known Allergies Allergy Verified 09/24/24 16:57 Laboratory Results WBC 8.97 10*3/uL (4.50-10.00) 09/25/24 07:03 RBC 5.20 10*6/uL (4.40-5.60) 09/25/24 07:03 Hgb 15.4 g/dL (13.0-17.0) 09/25/24 07:03 Hct 44.0 % (39.6-50.0) 09/25/24 07:03 MCV 84.6 fL (80.0-97.0) 09/25/24 07:03 MCH 29.6 pg (27.0-32.0) 09/25/24 07:03 MCHC 35.0 g/dL (32.0-37.0) 09/25/24 07:03 Plt Count 354 10*3/uL (140-440) 09/25/24 07:03 MPV 9.0 fL (9.5-12.2) L 09/25/24 07:03 Immature Gran % (Auto) 0.1 % 09/25/24 07:03 Neutrophils % 53.2 % 09/25/24 07:03 Lymphocytes % 36.6 % 09/25/24 07:03 Monocytes % 5.6 % 09/25/24 07:03 Eosinophils % 3.7 % 09/25/24 07:03 Basophils % 0.8 % 09/25/24 07:03 Immature Gran # 0.01 10*3/uL (0.00-0.04) 09/25/24 07:03 Neutrophils # 4.78 10*3/uL (1.80-7.70) 09/25/24 07:03 Lymphocytes # 3.28 10*3/uL (0.90-5.00) 09/25/24 07:03 Monocytes # 0.50 10*3/uL (0.20-1.00) 09/25/24 07:03 Eosinophils # 0.33 10*3/uL (0.04-0.35) 09/25/24 07:03 Basophils # 0.07 10*3/uL (0.00-0.10) 09/25/24 07:03 Sodium 144 mmol/L (137-145) 09/25/24 07:03 Potassium 3.9 mmol/L (3.5-5.1) 09/25/24 07:03 Chloride 110 mmol/L (98-107) H 09/25/24 07:03 Carbon Dioxide 18 mmol/L (22-30) L 09/25/24 07:03 Anion Gap 16 mmol/L 09/25/24 07:03 BUN 12 mg/dL (9-20) 09/25/24 07:03 Creatinine 0.96 mg/dL (0.66-1.25) 09/25/24 07:03 Est GFR (CKD-EPI)AfAm >90 (>60 ml/min/1.73 sqM) 09/25/24 07:03 Est GFR (CKD-EPI)NonAf >90 (>60 ml/min/1.73 sqM) 09/25/24 07:03 Glucose 97 mg/dL (74-99) 09/25/24 07:[address] Glu mg/dL 97 mg/dL 09/25/24 07:03 Hemoglobin A1c 5.0 % (<=6.0) 09/25/24 07:03 Calcium 10.3 mg/dL (8.4-10.2) H 09/25/24 07:03 Total Bilirubin 1.5 mg/dL (0.2-1.3) H 09/25/24 07:03 AST 30 U/L (17-59) 09/25/24 07:03 ALT 21 U/L (4-49) 09/25/24 07:03 Alkaline Phosphatase 86 U/L (38-126) 09/25/24 07:03 Total Protein 8.1 g/dL (6.3-8.2) 09/25/24 07:03 Albumin 5.2 g/dL (3.5-5.0) H 09/25/24 07:03 Triglycerides 63.40 mg/dL (0.00-149.00) 09/25/24 07:03 Cholesterol 162.00 mg/dL (0.00-200.00) 09/25/24 07:03 LDL Cholesterol, Calc 86.6 mg/dL (0.0-131.0) 09/25/24 07:03 VLDL Cholesterol, Calc 12.68 mg/dL (5.00-40.00) 09/25/24 07:03 HDL Cholesterol 62.70 mg/dL (40.00-60.00) H 09/25/24 07:03 Cholesterol/HDL Ratio 2.58 Ratio 09/25/24 07:03 TSH 2.990 mIU/L (0.465-4.680) 09/25/24 07:03 Urine Color Colorless 09/25/24 12:15 Urine Appearance Clear (Clear) 09/25/24 12:15 Urine pH 6.0 (5.0-8.0) 09/25/24 12:15 Ur Specific Normal 1.011 (1.001-1.035) 09/25/24 12:15 Urine Protein Negative (Negative) 09/25/24 12:15 Urine Glucose (UA) Negative (Negative) 09/25/24 12:15 Urine Ketones 1+ (Negative) H 09/25/24 12:15 Urine Blood Trace (Negative) H 09/25/24 12:15 Urine Nitrite Negative (Negative) 09/25/24 12:15 Urine Bilirubin Negative (Negative) 09/25/24 12:15 Urine Urobilinogen <2.0 mg/dL (<2.0) 09/25/24 12:15 Ur Leukocyte Esterase Negative (Negative) 09/25/24 12:15 Urine RBC 2 /hpf (0-5) 09/25/24 12:15 Urine WBC 1 /hpf (0-5) 09/25/24 12:15 Urine Opiates Screen Not Detected (NotDetected) 09/24/24 13:59 Ur Oxycodone Screen Not Detected (NotDetected) 09/24/24 13:59 Urine Methadone Screen Not Detected (NotDetected) 09/24/24 13:59 Ur Barbiturates Screen Not Detected (NotDetected) 09/24/24 13:59 U Tricyclic Antidepress Not Detected (NotDetected) 09/24/24 13:59 Ur Phencyclidine Scrn Not Detected (NotDetected) 09/24/24 13:59 Ur Amphetamines Screen Not Detected (NotDetected) 09/24/24 13:59 U Methamphetamines Scrn Not Detected (NotDetected) 09/24/24 13:59 U Benzodiazepines Scrn Not Detected (NotDetected) 09/24/24 13:59 Urine Cocaine Screen Not Detected (NotDetected) 09/24/24 13:59 U Marijuana (THC) Screen Detected (NotDetected) H 09/24/24 13:59 Influenza Type A (PCR) Not Detected (Not Detectd) 09/24/24 16:45 Influenza Type B (PCR) Not Detected (Not Detectd) 09/24/24 16:45 RSV (PCR) Not Detected (Not Detectd) 09/24/24 16:45 SARS-CoV-2 (PCR) Not Detected (Not Detectd) 09/24/24 16:45 Vital Signs Temp 97.4 F L 10/02/24 08:00 Pulse 132 H 10/02/24 08:00 Resp 18 10/01/24 21:00 BP 107/73 10/02/24 08:00 Pulse Ox 98 10/02/24 08:00 FiO2 Intake & Output 10/01/24 10/02/24 10/02/24 18:59 06:59 18:59 Weight 68.8 kg Patient Condition at Discharge: Stable Plan - Discharge Summary Discharge Rx Participant: Yes New Discharge Prescriptions: New Loratadine [Claritin] 5 mg PO DAILY PRN 30 Days #30 tab PRN Reason: Sinus Symptoms Nicotine 21Mg/24Hr Patch [Habitrol] 1 patch TRANSDERM DAILY 14 Days #14 patch Paliperidone Palmitate [Invega Sustenna] 117 mg IM QMONTHLY #1 each Multivitamins, Thera [Multivitamin (formulary)] 1 each PO DAILY 30 Days #30 tab Melatonin 10 mg PO HS 30 Days #60 tab Ketotifen 0.025% Ophth Soln [Zaditor] 1 drops BOTH EYES BID 30 Days #1 ml Discharge Medication List Ketotifen 0.025% Ophth Soln [Zaditor] 1 drops BOTH EYES BID 30 Days #1 ml 10/02/24 [Rx] Loratadine [Claritin] 5 mg PO DAILY PRN 30 Days #30 tab 10/02/24 [Rx] Melatonin 10 mg PO HS 30 Days #60 tab 10/02/24 [Rx] Multivitamins, Thera [Multivitamin (formulary)] 1 each PO DAILY 30 Days #30 tab 10/02/24 [Rx] Nicotine 21Mg/24Hr Patch [Habitrol] 1 patch TRANSDERM DAILY 14 Days #14 patch 10/02/24 [Rx] Paliperidone Palmitate [Invega Sustenna] 117 mg IM QMONTHLY #1 each 10/02/24 [Rx] Follow up Appointment(s)/Referral(s): [facility], [facility] [Other] - 1 Week [facility] [Outside] - 10/04/24 3:00 pm (10/04/2024 3:00PM - 4:00PM LI MICHAEL 10/09/2024 1:00PM - 2:00PM GILBERTO CARD ) Patient Instructions/Handouts: How to Stop Smoking (DC), Schizophrenia (DC), A nxiety (ED) Activity/Diet/Wound Care/Special Instructions: [facility] Discharge Info Avoid the use of street drugs and alcohol. Take all medications as prescribed. When you are in need of refills on your medications, please contact your outpatient medical provider and/or outpatient psychiatrist. Please go to your scheduled outpatient appointments for aftercare treatment. If symptoms return or become worse, call the crisis line at or and/or visit the nearest emergency room for assistance. National Suicide and Crisis Lifeline - call or text 988.Medical physician recommends to follow up outpatient in 4-6 weeks to have thyroid levels checked again. Recommendations to have an EMG outpatient on bilateral upper extremities for probable bilateral carpal tunnel. Discharge Disposition: OTHER INSTITUTION NOT DEFINED
== END 2024-10-02 13:37 | disposition home or self-care (01) | DRG 750 ==
LOC: EC 12:55 → 3MHU 19:37
PROVIDERS: ADMIT Psychiatry & Neurology Psychiatry; ATTEND Psychiatry & Neurology Psychiatry
DX: F20.9 Schizophrenia, unspecified (principal); F12.10 Cannabis abuse, uncomplicated; F17.290 Nicotine dependence, other tobacco product, uncomplicated; F41.1 Generalized anxiety disorder; Z55.5 Less than a high school diploma; Z91.148 Patient's other noncompliance with medication regimen for other reason; Z11.52 Encounter for screening for COVID-19; Z59.01 Sheltered homelessness; Z28.21 Immunization not carried out because of patient refusal
CPT/HCPCS: 80053; 80061; 80306; 81001; 82075; 83036; 84443; 85025; 87636; 99285